=== PATIENT | female | born 1995 | race Caucasian/White ===

== ENCOUNTER 2016-04-28 06:53 | Emergency (ER) | payer BC, OTHER ==
[~2016-04-28] VITALS: Ht 162.6 cm; Wt 82.8 kg
[~2016-04-28 06:53] MED LIST: HYDR-5688 PO; METR-163 PO; OXYC-88 PO
[2016-04-28 06:57] VITALS: TEMP 36.9; Ht 162.6 cm; Wt 82.8 kg
[2016-04-28] MEDS ORDERED: ONDANSETRON INJ 2 MG/ML 2 ML VIAL IV STA (07:02)
[2016-04-28] MEDS ORDERED: SODIUM CHLORIDE 0.9% 1000ML 1,000 ML IV STA (07:02)
[2016-04-28] MEDS ORDERED: MELO7.5T5 PO (07:17)
[2016-04-28] MEDS ORDERED: ESCI10TA17 PO (07:17)
[2016-04-28 07:24] LABS: BASO % 0.1 %; BASO ABS # 0.01 K/uL (0-0.2); COMPLETE YES; EOS % 0.5 %; HEMATOCRIT 39.3 % (37-47); IG% 0.3 %; LYMPH % 3.8 %; LYMPH ABS # 0.53 K/uL (1.2-3.4); MEAN CELL VOLUME 86.9 fL (80-100); MEAN CORPUSCULAR HEMOGLOBIN 29.9 pg (25-34); MEAN CORPUSCULAR HGB CONC 34.4 g/dl (32-36); MEAN PLATELET VOLUME 9.1 fL (7.4-10.4); MONO % 2.8 %; NEUT % 92.5 %; PLATELET COUNT 279 K/uL (130-400); RED BLOOD COUNT 4.52 M/uL (4.2-5.4); WHITE BLOOD COUNT 14.07 K/uL (4.8-10.8)
[2016-04-28] MEDS ORDERED: KETOROLAC TROMETHAMINE 30 MG/ML VIAL IV STA (07:26)
[2016-04-28] MEDS ORDERED: HYDROmorphone INJ 0.5 MG/0.5 ML SYR IV STA (07:26)
[2016-04-28 07:29] LABS: URINE APPEARANCE CLOUDY (CLEAR); URINE BILIRUBIN NEG (NEG); URINE COLOR YELLOW; URINE EPITHELIAL CELL AUTO >30 /lpf (0-5); URINE NITRITE NEG (NEG); URINE SPECIFIC GRAVITY 1.022 (1.000-1.030); UROBILINOGEN NEG (NEG)
[2016-04-28 07:30] LABS: MANUAL MICROSCOPIC REQUIRED? NO; REVIEW REQ? NO
[2016-04-28 07:47] LABS: PREG INTERNAL NEGATIVE QC NEG CLEAR BACKGROUND; PREG INTERNAL POSITIVE QC POS CONTROL LINE
[2016-04-28] MEDS ORDERED: NITROFURANTOIN MONOHYDRATE 100 MG CAP PO STA (07:48)
[2016-04-28 07:49] LABS: ALT/SGPT 21 U/L (12-78); AST/SGOT 8 U/L (15-37); BLOOD UREA NITROGEN 17 mg/dl (7-18); BUN/CREATININE RATIO 20.3 (10-20); CARBON DIOXIDE 23 mmol/L (21-32); CHLORIDE 108 mmol/L (98-107); CREATININE 0.83 mg/dl (0.60-1.20); GLUCOSE 145 mg/dl (70-99); SODIUM 141 mmol/L (136-145)
[2016-04-28 07:52] LABS: ALKALINE PHOSPHATASE 53 U/L (45-117)
[2016-04-28] MEDS ORDERED: ONDA4TAB10 SL (08:16)
--- NOTE | 2016-04-28 08:35 | EMERGENCY ROOM VISIT NOTE ---
History Report prepared by Zac: Ayde Guerrero Under the Supervision of: Dr. Hardy Brown M.D. First contact with patient: 07:02 Chief Complaint: ABDOMINAL PAIN Stated Complaint: FOOD POISONING,PAIN,DEHYDRATION Nursing Triage Summary: Triage note: pt reports nausea, vomitting, diarrhea since midnight. "i think i ate bad sushi and i have food poisoning." pt also reports generalized abd pain. History of Present Illness The patient is a 21 year old female who presents to the Emergency Room with complaints of multiple episodes of vomiting over the past 7 hours. Currently, she is experiencing generalized abdominal pain, and she rates her discomfort as a 10/10. Prior to the time of onset, the patient had eaten sushi for dinner, which she thinks may have be spoiled. A few hours later, she then developed generalized abdominal pain and became nauseous, leading to several episodes of vomiting about every hour. She also notes passing multiple movements of watery diarrhea. She now believes that she is dehydrated as she has not been able to keep any food or fluids down without vomiting them back up. She denies noticing any blood or dark colors in her stools or emesis. The patient has a history of chronic back pain, which she states was exacerbated to her lower middle back last evening. She also notes pain and burning with urination. The patient denies having recent fevers, chills, chest pain, or shortness of breath and she has not been around any other ill contacts. She denies chance of and last normal menstrual period was last week Source of History: patient Onset: evening Position: abdomen Symptom Intensity: Quality: other (vomiting) Timing: other (multiple episodes) Modifying Factors (Worsening): eating, drinking Associated Symptoms: + abdominal pain, + diarrhea, + nausea, + urinary symptoms, + vomiting, No SOB, No chest pain, No chills, No fevers, No hematochezia, No melena Note: Denies hematemesis. Review of Systems See HPI for pertinent positives & negatives. A total of 10 systems reviewed and were otherwise negative. Past Medical & Surgical Medical Problems: (1) Active labor at term (2) Tubo-ovarian abscess Social History Smoking Status: Never Smoker Marital Status: single Occupation Status: employed Current/Historical Medications Scheduled Escitalopram (Lexapro), 10 MG PO DAILY Meloxicam (Mobic), 7.5 MG PO DAILY Nitrofurantoin Monohyd Macrocr (Macrobid), 100 MG PO BID Ondasetron Odt (Zofran Odt), 4 MG SL Q6H Allergies Coded Allergies: No Known Allergies (Unverified , 04/28/16) Physical Exam Vital Signs Date Time Temp Pulse Resp B/P Pulse Ox O2 Delivery O2 Flow Rate FiO2 04/28/16 08:46 90 16 118/69 96 04/28/16 07:46 95 04/28/16 06:57 36.9 127 18 97/63 95 Room Air Physical Exam GENERAL: Patient is a healthy-appearing well-nourished 21 year old female. HEAD: Normocephalic atraumatic EYES: Ocular movements intact pupils equal and react to light OROPHARYNX mucous membranes are moist no exudates present no erythema or edema present NECK: Supple no nuchal rigidity CHEST: Good equal expansion LUNGS: Clear and equal to auscultation CARDIAC: Normal S1 and S2 ABDOMEN: Soft nontender no guarding BACK: No CVA tenderness EXTREMITIES: No pain upon palpation normal muscle strength in all groups no clubbing cyanosis or edema NEURO: Patient is following commands is answering questions appropriately. Alert and oriented x3 Cranial Nerves 2-12 grossly intact Medical Decision & Procedures Laboratory Results 04/28/16 07:15 Red Blood Count 4.52, Mean Corpuscular Volume 86.9, Mean Corpuscular Hemoglobin 29.9, Mean Corpuscular Hemoglobin Concent 34.4, Mean Platelet Volume 9.1, Neutrophils (%) (Auto) 92.5, Lymphocytes (%) (Auto) 3.8, Monocytes (%) (Auto) 2.8, Eosinophils (%) (Auto) 0.5, Basophils (%) (Auto) 0.1, Neutrophils # (Auto) 13.02, Lymphocytes # (Auto) 0.53, Monocytes # (Auto) 0.40, Eosinophils # (Auto) 0.07, Basophils # (Auto) 0.01 04/28/16 07:15 Test 04/28/16 07:15 White Blood Count 14.07 K/uL (4.8-10.8) Red Blood Count 4.52 M/uL (4.2-5.4) Hemoglobin 13.5 g/dL (12.0-16.0) Hematocrit 39.3 % (37-47) Mean Corpuscular Volume 86.9 fL (80-100) Mean Corpuscular Hemoglobin 29.9 pg (25-34) Mean Corpuscular Hemoglobin Concent 34.4 g/dl (32-36) Platelet Count 279 K/uL (130-400) Mean Platelet Volume 9.1 fL (7.4-10.4) Neutrophils (%) (Auto) 92.5 % Lymphocytes (%) (Auto) 3.8 % Monocytes (%) (Auto) 2.8 % Eosinophils (%) (Auto) 0.5 % Basophils (%) (Auto) 0.1 % Neutrophils # (Auto) 13.02 K/uL (1.4-6.5) Lymphocytes # (Auto) 0.53 K/uL (1.2-3.4) Monocytes # (Auto) 0.40 K/uL (0.11-0.59) Eosinophils # (Auto) 0.07 K/uL (0-0.5) Basophils # (Auto) 0.01 K/uL (0-0.2) RDW Standard Deviation 50.0 fL (36.4-46.3) RDW Coefficient of Variation 15.7 % (11.5-14.5) Immature Granulocyte % (Auto) 0.3 % Immature Granulocyte # (Auto) 0.04 K/uL (0.00-0.02) Urine Color YELLOW Urine Appearance CLOUDY (CLEAR) Urine pH 5.0 (4.5-7.5) Urine Specific [place] 1.022 (1.000-1.030) Urine Protein NEG (NEG) Urine Glucose (UA) NEG (NEG) Urine Ketones NEG (NEG) Urine Occult Blood NEG (NEG) Urine Nitrite NEG (NEG) Urine Bilirubin NEG (NEG) Urine Urobilinogen NEG (NEG) Urine Leukocyte Esterase SMALL (NEG) Urine WBC (Auto) 10-30 /hpf (0-5) Urine RBC (Auto) 0-4 /hpf (0-4) Urine Hyaline Casts (Auto) 10-30 /lpf (0-5) Urine Epithelial Cells (Auto) >30 /lpf (0-5) Urine Bacteria (Auto) 1+ (NEG) Anion Gap 10.0 mmol/L (3-11) Est Creatinine Clear Calc Drug Dose 109.8 ml/min Estimated GFR () 115.2 Estimated GFR (Non- 99.4 BUN/Creatinine Ratio 20.3 (10-20) Calcium Level 9.0 mg/dl (8.5-10.1) Total Bilirubin 0.4 mg/dl (0.2-1) Direct Bilirubin < 0.1 mg/dl (0-0.2) Aspartate Amino Transf (AST/SGOT) 8 U/L (15-37) Alanine Aminotransferase (ALT/SGPT) 21 U/L (12-78) Alkaline Phosphatase 53 U/L (45-117) Total Protein 8.0 gm/dl (6.4-8.2) Albumin 4.2 gm/dl (3.4-5.0) Lipase 143 U/L (73-393) Human Chorionic Gonadotropin, Qual NEG (NEG) Labs reviewed by ED physician. Medications Administered Medications (Trade) Dose Ordered Sig/Nelson Route Start Time Stop Time Status Last Admin Dose Admin Sodium Chloride (Nss 1000ml) 1,000 ml @ 999 mls/hr Q1H1M STAT IV 04/28/16 07:02 04/28/16 08:02 DC 04/28/16 07:24 999 MLS/HR Ondansetron HCl (Zofran Inj) 4 mg NOW STAT IV 04/28/16 07:02 04/28/16 07:05 DC 04/28/16 07:24 4 MG Ketorolac Tromethamine (Toradol Inj) 30 mg NOW STAT IV 04/28/16 07:26 04/28/16 07:27 DC 04/28/16 07:40 30 MG Hydromorphone HCl (Dilaudid Inj) 0.5 mg NOW STAT IV 04/28/16 07:26 04/28/16 07:27 DC 04/28/16 07:37 0.5 MG Nitrofurantoin Macrocrystals (Macrobid Cap) 100 mg ONE STAT PO 04/28/16 07:48 04/28/16 07:50 DC 04/28/16 07:54 100 MG ED Course 0700: Past medical records reviewed. The patient was evaluated in room B3. A complete history and physical examination was performed. 0702: Zofran 4 mg IV and NSS bolus IV were ordered. 0726: Patient was reevaluated at this time and was still experiencing abdominal pain. Dilaudid 0.5 mg IV and Toradol 30 mg IV were ordered. 0748: Macrobid cap 100 mg PO was ordered. 0810: Upon reevaluation, the patient was doing well and was feeling improved after receiving the medications and fluids. I updated her on the results of her lab tests. Discharge instructions were also discussed at this time. She verbalized her understanding and agreement with the treatment plan, and she is now ready for disposition. Medical Decision Differential diagnosis: Etiologies such as appendicitis, diverticulitis, PUD, biliary pathology, UTI, pancreatitis, obstruction, mesenteric ischemia, aortic pathology, infections, inflammatory bowel disease, renal colic, as well as others were entertained. This is a 21-year-old female who presents emergency Department with multiple complaints. The patient is complaining of urinary frequency and burning. In addition she is also complaining of vomiting and diarrhea. Serial abdominal examinations were performed on the patient and no tended the patient exhibited a surgical abdomen. Using shared medical decision-making, the patient and I decided that we would not need a CAT scan as this appears to be gastroenteritis. An IV was established, the patient given normal saline bolus, Toradol, Dilaudid, Zofran. Repeat examination revealed improvement patient's symptoms. I do believe this patient as well as to be discharged home for follow -up with her primary care physician. Patient was started on Macrobid in the emergency department pending urine culture results. Impression Primary Impression: UTI (urinary tract infection) Additional Impression: Acute gastroenteritis Scribe Attestation The scribe's documentation has been prepared under my direction and personally reviewed by me in its entirety. I confirm that the note above accurately reflects all work, treatment, procedures, and medical decision making performed by me. Departure Information Dispostion Home / Self-Care Prescriptions Nitrofurantoin Monohyd Macrocr (Macrobid) 100 Mg Cap 100 MG PO BID for 7 Days, #14 CAP Prov: Hardy Brown MD 04/28/16 Ondasetron Odt (ZOFRAN ODT) 4 Mg Tab 4 MG SL Q6H for Nausea, #6 TAB Prov: Hardy Brown MD 04/28/16 Referrals No Doctor, Assigned (PCP) Forms HOME CARE DOCUMENTATION FORM, IMPORTANT VISIT INFORMATION Patient Instructions ED Diet Vomiting Diarrhea, ED Gastroenteritis Vs Food Poison, My [facility] Additional Instructions You received narcotic or benzodiazepene medication while in the emergency room today. Do not drive, operate heavy machinery, or drink alcohol under the influence of this medication. Take 600 mg Ibuprofen every 6 hours Take 1000 mg Tylenol every 6 hours You have been examined and treated today on an emergency basis only. This is not a substitute for, or an effort to provide, complete comprehensive medical care. It is impossible to recognize and treat all injuries or illnesses in a single emergency department visit. It is therefore important that you follow up closely with your PCP. Call as soon as possible for an appointment. Thank you for your time and consideration. I look forward to speaking with you again soon. Please don't hesitate to call us if you have any questions. Problem Qualifiers Primary Impression: UTI (urinary tract infection) Urinary tract infection type: acute cystitis Hematuria presence: without hematuria Qualified Codes: N30.00 - Acute cystitis without hematuria
[2016-04-28] MEDS ORDERED: NITR-5 PO (08:41)
[2016-04-28 08:46] VITALS: BP 118/69; PULSE 90; O2SAT 96
[2016-12-17] MEDS ORDERED: ESCI1TAB10 PO (06:08)
[2016-12-17] MEDS ORDERED: AMPH20TA2 PO (06:09)
[2016-12-17] MEDS ORDERED: DXY100 PO (17:57)
== END 2016-04-28 08:40 | disposition home or self-care (01) ==
LOC: C.EDB 06:54
DX: N39.0 Urinary tract infection, site not specified (principal); K52.9 Noninfective gastroenteritis and colitis, unspecified

== ENCOUNTER 2016-12-17 05:16 | Observation (INO) | payer BC, OTHER ==
[~2016-12-17] VITALS: Ht 162.6 cm; Wt 78.9 kg
[~2016-12-17 05:16] MED LIST changes: +ESCI10TA17 PO; -HYDR-5688 PO; +MELO7.5T5 PO; -METR-163 PO; -OXYC-88 PO
[2016-12-17] MEDS ORDERED: METOCLOPRAMIDE HCL INJ 5 MG/ML 2 ML VIAL IV STA (05:28)
[2016-12-17] MEDS ORDERED: DiphenhydrAMINE HCL 50 MG/ML VIAL IV STA (05:28)
[2016-12-17] MEDS ORDERED: ALUMINUM/MAGNESIUM SUSP 30 ML UDC PO STA (05:28)
[2016-12-17] MEDS ORDERED: SODIUM CHLORIDE 0.9% 1000ML 1,000 ML IV STA (05:28)
[2016-12-17] MEDS ORDERED: LIDOCAINE HCL 2% VISC SOLN 20 ML UDC PO STA (05:28)
[2016-12-17 05:55] LABS: BASO % 0.2 %; BASO ABS # 0.02 K/uL (0-0.2); COMPLETE YES; EOS % 2.4 %; IG% 0.2 %; LYMPH % 20.2 %; LYMPH ABS # 2.26 K/uL (1.2-3.4); MEAN CELL VOLUME 90.1 fL (80-100); MEAN CORPUSCULAR HEMOGLOBIN 28.4 pg (25-34); MEAN CORPUSCULAR HGB CONC 31.5 g/dl (32-36); MEAN PLATELET VOLUME 9.1 fL (7.4-10.4); MONO % 4.8 %; NEUT % 72.2 %; PLATELET COUNT 300 K/uL (130-400); RED BLOOD COUNT 4.44 M/uL (4.2-5.4); WHITE BLOOD COUNT 11.17 K/uL (4.8-10.8)
[2016-12-17 06:11] LABS: ALT/SGPT 17 U/L (12-78); AST/SGOT 7 U/L (15-37); BLOOD UREA NITROGEN 6 mg/dl (7-18); BUN/CREATININE RATIO 8.9 (10-20); CALCIUM 8.7 mg/dl (8.5-10.1); CARBON DIOXIDE 26 mmol/L (21-32); CHLORIDE 107 mmol/L (98-107); CREATININE 0.71 mg/dl (0.60-1.20); GLUCOSE 123 mg/dl (70-99); POTASSIUM 3.8 mmol/L (3.5-5.1); SODIUM 139 mmol/L (136-145)
[2016-12-17 06:14] LABS: ALKALINE PHOSPHATASE 59 U/L (45-117)
[2016-12-17] MEDS ORDERED: OPTIRAY 320 IV PRN (06:15)
[2016-12-17] MEDS ORDERED: ONDANSETRON HOME PACK 4MG OD TAB PO ONE (06:15)
[2016-12-17] MEDS ORDERED: BENTYL HOME PACK 10 MG VIAL PO ONE (06:15)
[2016-12-17] MEDS ORDERED: DICYCLOMINE HCL 10 MG/ML 2 ML AMP IM ONE (06:15)
[2016-12-17 06:25] LABS: PREG INTERNAL NEGATIVE QC NEG CLEAR BACKGROUND; PREG INTERNAL POSITIVE QC POS CONTROL LINE
--- NOTE | 2016-12-17 06:41 | EMERGENCY ROOM VISIT NOTE ---
History First contact with patient: 05:24 Chief Complaint: ABDOMINAL PAIN Stated Complaint: STOMACH PAIN,NAUSEA,CAN'T EAT OR DRINK Nursing Triage Summary: c/o diffuse abd pain, vomiting for 3-4 days. History of Present Illness The patient is a 21 year old female who presents to the Emergency Room with complaints of nausea, vomiting, diarrhea and abdominal cramping for the past few days. No blood or black in the emesis or diarrhea. No recent antibiotics. No well water. Patient denies chest pain, dyspnea, fever, chills, cough, ejection, back pain, urinary symptoms. Review of Systems See HPI for pertinent positives & negatives. A total of 10 systems reviewed and were otherwise negative. Past Medical/Surgical History Medical Problems: (1) Active labor at term (2) Tubo-ovarian abscess Social History Smoking Status: Never Smoker Drug Use: none Marital Status: in relationship Housing Status: lives with family Occupation Status: employed Current/Historical Medications Scheduled Amphetamine-Dextroamphetamine 20MG (Adderall 20MG), 20 MG PO DAILY Escitalopram Oxalate (Lexapro), 20 MG PO DAILY Physical Exam Vital Signs Date Time Temp Pulse Resp B/P (MAP) Pulse Ox O2 Delivery O2 Flow Rate FiO2 12/17/16 06:37 67 18 110/68 98 Room Air 12/17/16 06:05 76 12/17/16 05:40 96 Room Air 12/17/16 05:19 36.4 81 18 120/81 94 Room Air Physical Exam VITALS: Vitals are noted on the nurse's note and reviewed by myself. Vital signs stable. GENERAL: White female, in no acute distress, nondiaphoretic, well-developed well -nourished. SKIN: The skin was without rashes, erythema, edema, or bruising. There is no tenting of the skin. Capillary reflex less than 2 seconds. HEAD: Normocephalic atraumatic. EARS: External auditory canals clear, tympanic membranes pearly key without erythema or effusion bilaterally. EYES: Pupils equal round and reactive to light and accommodation. Conjunctivae without injection, sclerae without icterus. Extraocular movements intact. NOSE: Patent, turbinates without inflammation or discharge. MOUTH: Mucous membranes mildly dry. Pharynx without erythema or exudate. Uvula midline. Airway patent. Tongue does not deviate. NECK: Supple without nuchal rigidity. No lymphadenopathy. No thyromegaly. Cervical spine is nontender. No JVD. HEART: Regular rate and rhythm without murmurs gallops or rubs. LUNGS: Clear to auscultation bilaterally without wheezes, rales or rhonchi. No dullness to percussion. No retractions or accessory muscle use. ABDOMEN: Positive bowel sounds x 4. Normal tympanic percussion. Soft, nontender, without masses or organomegaly. Solorzano sign negative. No guarding or rebound tenderness. No CVA tenderness MUSCULOSKELETAL: No muscle atrophy, erythema, or edema noted. NEURO: Patient was alert and oriented to person place and time. Normal sensation to light and sharp touch. No focal neurological deficits. Medical Decision & Procedures Laboratory Results 12/17/16 05:40 Red Blood Count 4.44, Mean Corpuscular Volume 90.1, Mean Corpuscular Hemoglobin 28.4, Mean Corpuscular Hemoglobin Concent 31.5, Mean Platelet Volume 9.1, Neutrophils (%) (Auto) 72.2, Lymphocytes (%) (Auto) 20.2, Monocytes (%) (Auto) 4.8, Eosinophils (%) (Auto) 2.4, Basophils (%) (Auto) 0.2, Neutrophils # (Auto) 8.06, Lymphocytes # (Auto) 2.26, Monocytes # (Auto) 0.54, Eosinophils # (Auto) 0.27, Basophils # (Auto) 0.02 12/17/16 05:40 Test 12/17/16 05:40 White Blood Count 11.17 K/uL (4.8-10.8) Red Blood Count 4.44 M/uL (4.2-5.4) Hemoglobin 12.6 g/dL (12.0-16.0) Hematocrit 40.0 % (37-47) Mean Corpuscular Volume 90.1 fL (80-100) Mean Corpuscular Hemoglobin 28.4 pg (25-34) Mean Corpuscular Hemoglobin Concent 31.5 g/dl (32-36) Platelet Count 300 K/uL (130-400) Mean Platelet Volume 9.1 fL (7.4-10.4) Neutrophils (%) (Auto) 72.2 % Lymphocytes (%) (Auto) 20.2 % Monocytes (%) (Auto) 4.8 % Eosinophils (%) (Auto) 2.4 % Basophils (%) (Auto) 0.2 % Neutrophils # (Auto) 8.06 K/uL (1.4-6.5) Lymphocytes # (Auto) 2.26 K/uL (1.2-3.4) Monocytes # (Auto) 0.54 K/uL (0.11-0.59) Eosinophils # (Auto) 0.27 K/uL (0-0.5) Basophils # (Auto) 0.02 K/uL (0-0.2) RDW Standard Deviation 46.8 fL (36.4-46.3) RDW Coefficient of Variation 14.3 % (11.5-14.5) Immature Granulocyte % (Auto) 0.2 % Immature Granulocyte # (Auto) 0.02 K/uL (0.00-0.02) Anion Gap 6.0 mmol/L (3-11) Est Creatinine Clear Calc Drug Dose 125.3 ml/min Estimated GFR () 139.1 Estimated GFR (Non- 120.1 BUN/Creatinine Ratio 8.9 (10-20) Calcium Level 8.7 mg/dl (8.5-10.1) Total Bilirubin 0.2 mg/dl (0.2-1) Direct Bilirubin < 0.1 mg/dl (0-0.2) Aspartate Amino Transf (AST/SGOT) 7 U/L (15-37) Alanine Aminotransferase (ALT/SGPT) 17 U/L (12-78) Alkaline Phosphatase 59 U/L (45-117) Total Protein 6.9 gm/dl (6.4-8.2) Albumin 3.4 gm/dl (3.4-5.0) Lipase 1018 U/L (73-393) Human Chorionic Gonadotropin, Qual NEG (NEG) Medications Administered Medications (Trade) Dose Ordered Sig/Nelson Route Start Time Stop Time Status Last Admin Dose Admin Lidocaine HCl (Viscous Lidocaine 2% Soln) 10 ml NOW STAT PO 12/17/16 05:28 12/17/16 05:29 DC 12/17/16 05:46 10 ML Al Hydroxide/Mg Hydroxide (Maalox Susp) 30 ml NOW STAT PO 12/17/16 05:28 12/17/16 05:29 DC 12/17/16 05:46 30 ML Metoclopramide HCl (Reglan Inj) 10 mg NOW STAT IV 12/17/16 05:28 12/17/16 05:29 DC 12/17/16 05:48 10 MG Diphenhydramine HCl (Benadryl Inj) 12.5 mg NOW STAT IV 12/17/16 05:28 12/17/16 05:29 DC 12/17/16 05:48 12.5 MG Sodium Chloride 1,000 ml @ 999 mls/hr Q1H1M STAT IV 12/17/16 05:28 12/17/16 06:28 DC 12/17/16 05:48 999 MLS/HR Dicyclomine HCl (Bentyl Inj) 20 mg NOW ONCE IM 12/17/16 06:15 12/17/16 06:16 DC 12/17/16 06:33 20 MG ED Course Prior records/ancillary studies reviewed. Triage Nursing notes reviewed. The patient's history was concerning for nausea, vomiting, diarrhea, and abdominal pain. Differential diagnosis: Etiologies such as gastroenteritis, food borne illness, infections, appendicitis , diverticulitis, inflammatory bowel disease, obstruction, GI bleed, biliary pathology, as well as others were entertained. Physical examination findings: As above. Abdominal examination revealed no tenderness. Vital signs reviewed and revealed stable. ER treatment provided: IV hydration 1 L NSS. GI cocktail, Reglan, Benadryl On reassessment the patient felt better. Patient was tolerating p.o. intake. Diagnostics interpretation by me: The labs revealed elevated lipase and mild leukocytosis CT ABDOMEN & PELVIS: Unremarkable CT appearance of the pancreas. Liver, gallbladder, pancreas, adrenal glands, and kidneys are unremarkable. No bowel obstruction, appendicitis, or diverticulitis. Uterus and urinary bladder are unremarkable. Trace free pelvic fluid, likely physiologic. No acute osseous findings. Radiologist: Abhilash Sawyer M.D. This appears to be consistent with vomiting and diarrhea with elevated lipase concerning for pancreatitis. Patient has a mildly elevated white count and elevated lipase. She will be evaluated by medicine for possible admission. Patient states she does not really drink alcohol. No fever. Normal LFTs. By the evaluation outlined above emergent etiologies such as appendicitis, diverticulitis, obstruction, cardiac sources, mesenteric ischemia, aortic pathology, inflammatory bowel disease, renal colic, PUD, biliary pathology, UTI , as well as others were deemed relatively unlikely. The pt informed about the findings as listed above. All questions were answered and pleased with the treatment. Case reviewed with my attending Medical Decision As above Medication Reconcilliation Current Medication List: was personally reviewed by me Blood Pressure Screening Patient's blood pressure: Normal blood pressure Impression Primary Impression: Nausea vomiting and diarrhea Additional Impression: Pancreatitis Departure Information Dispostion Being Evaluated By Hospitalist Condition GOOD Referrals No Doctor, Assigned (PCP) Patient Instructions My [facility] Additional Instructions Problem Qualifiers Additional Impression: Pancreatitis Chronicity: acute Pancreatitis type: unspecified pancreatitis type Acute pancreatitis complication: unspecified Qualified Codes: K85.90 - Acute pancreatitis without necrosis or infection, unspecified
[2016-12-17] MEDS ORDERED: PROMETHAZINE HCL INJ 12.5 MG in SODIUM CHLORIDE 0.9% 50ML 50 ML IV PRN (07:00)
[2016-12-17] MEDS ORDERED: ACETAMINOPHEN IV 650 MG in EMPTY BAG 0 ML IV PRN (07:00)
[2016-12-17] MEDS ORDERED: MoRPHine SULFATE 2 MG/ML CARP IV PRN (07:00)
[2016-12-17] MEDS ORDERED: ONDANSETRON INJ 2 MG/ML 2 ML VIAL IV PRN (07:00)
[2016-12-17] MEDS ORDERED: MoRPHine SULFATE 4 MG/ML 1 ML CARP\\VIAL IV PRN (07:00)
[2016-12-17] MEDS ORDERED: IV FLUIDS COMPLETED PRN (07:30)
[2016-12-17 07:45] VITALS: O2SAT 98; Ht 162.6 cm; Wt 78.9 kg
--- NOTE | 2016-12-17 07:47 | DIAGNOSTIC IMAGING REPORT ---
CT OF THE ABDOMEN AND PELVIS WITH CONTRAST CLINICAL HISTORY: Epigastric pain. Elevated lipase. COMPARISON STUDY: Right upper quadrant ultrasound February 14, 2016 and pelvic ultrasound March 31, 2016. TECHNIQUE: Following IV administration of 92 mL of Optiray-320, axial images of the abdomen and pelvis were obtained from the lung bases to the proximal femurs. Images were reviewed in the axial, sagittal, and coronal planes. IV contrast was administered without complication. A dose lowering technique was utilized adhering to the principles of ALARA. CT DOSE: 362.83 mGy.cm FINDINGS: The liver, spleen, adrenal glands and kidneys are normal. The pancreas is also within normal limits. There is no peripancreatic infiltration. No biliary or pancreatic ductal dilatation is present. There is no hydronephrosis. The caliber and wall thickness of small and large bowel are normal. The appendix is normal. The ovaries are not enlarged. A small amount of low-attenuation free fluid is noted within the pelvis. There are no suspicious osseous lesions. No pneumatosis, free air or portal venous gas is present. There is no lymphadenopathy. IMPRESSION: 1. No acute process within the abdomen or pelvis. Normal CT appearance of the pancreas. However, this does not exclude the possibility of acute pancreatitis. 2. Trace free fluid within the pelvis which is likely physiologic. 3. Normal appendix. No bowel obstruction. Electronically signed by: Miguel Jacinto M.D. 12/17/2016 7:46 AM Dictated Date/Time: 12/17/2016 7:42 AM
[2016-12-17] MEDS ORDERED: CEFOXITIN 2000MG/60 ML D5W IV SCH (08:00)
[2016-12-17 08:30] VITALS: BP 122/76; PULSE 74; TEMP 36.8; O2SAT 98
[2016-12-17] MEDS: LACTATED RINGER'S 1000ML 1,000 ML IV SCH ×2 (08:48→16:45)
[2016-12-17 08:52] LABS: URINE APPEARANCE CLEAR (CLEAR); URINE BILIRUBIN NEG (NEG); URINE COLOR YELLOW; URINE EPITHELIAL CELL AUTO >30 /lpf (0-5); URINE NITRITE NEG (NEG); URINE SPECIFIC GRAVITY > 1.045 (1.000-1.030); UROBILINOGEN NEG (NEG); ZZUR CULT IF INDIC CLEAN CATCH NO
[2016-12-17 08:53] LABS: MANUAL MICROSCOPIC REQUIRED? NO; REVIEW REQ? NO
--- NOTE | 2016-12-17 08:54 | History and Physical ---
History & Physical Date & Time of Service: Dec 17, 2016 at 08:49 Chief Complaint: Pancreatitis possible PID Primary Care Physician: No Doctor, Assigned History of Present Illness 21-year-old female presents to the ER with a few days' worth of abdominal pain. When asked she describes her pain mostly in her pelvis to be significant at 7/ 10 to be a dull ache exacerbated by moving coughing taking a deep breath radiating to her epigastrium and rib cage. She did have a GI cocktail by her account in the ER without any improvement of her pain her pain in her abdomen is mostly towards the left side. In the ER she is found to have elevated lipase around 1000. Of note she had an admission in March 2016 for tubo- ovarian abscess. Patient is mildly uncomfortable she says nothing has relieved her pain she sees Maria R DELIVERY MAN Family History She has no family history of gallstones or kidney stones, she states her family generally healthy Social History Smoking Status: Former Smoker Drug Use: none Marital Status: in relationship Occupational Status: employed Allergies Coded Allergies: No Known Allergies (Unverified , 12/17/16) Home Medications Scheduled Amphetamine-Dextroamphetamine 20MG (Adderall 20MG), 20 MG PO DAILY Escitalopram Oxalate (Lexapro), 20 MG PO DAILY Review of Systems ROS: well nourished well developed No double vision blurry vision No problems with speech or swallowing No palpitations, chest pain or pressure No Wheezing or breathing issues Left-sided lower abdominal pain plus nausea without vomiting, no diarrhea changes in appetite or weight No burning urine urine frequency or changes in color The patient denies vaginal discharge more than usual in her own words she's had no painful intercourse No focal joint pain or muscle pain No skin rashes or oral lesions No unusual bruising or bleeding Patient has a left CVA angle tenderness No changes in memory or confusion Physical Exam Vital Signs Date Time Temp Pulse Resp B/P (MAP) Pulse Ox O2 Delivery O2 Flow Rate FiO2 12/17/16 08:25 79 16 114/77 97 12/17/16 07:45 98 Room Air 12/17/16 06:37 67 18 110/68 98 Room Air 12/17/16 06:05 76 12/17/16 05:40 96 Room Air 12/17/16 05:19 36.4 81 18 120/81 94 Room Air General Appearance: WD/WN, + moderate distress Eyes: PERRL, EOMI ENT: hearing grossly normal, pharynx normal Respiratory/Chest: chest non-tender, lungs clear, normal breath sounds, + pertinent finding (has decreased breath sounds due to pain limiting deep breath) Cardiovascular: regular rate, rhythm, no murmur Abdomen/GI: normal bowel sounds, soft, + tenderness, + guarding, + pertinent finding (does not have significant pain in the left upper quadrant) Back: no muscle spasm, + left CVA tenderness Extremities/Musculoskelatal: no calf tenderness, no pedal edema Neurologic/Psych: alert, oriented x 3 Skin: normal color, warm/dry, no rash Diagnostics Laboratory Results Results Past 24 Hours Test 12/17/16 05:40 12/17/16 08:00 Range/Units White Blood Count 11.17 4.8-10.8 K/uL Red Blood Count 4.44 4.2-5.4 M/uL Hemoglobin 12.6 12.0-16.0 g/dL Hematocrit 40.0 37-47 % Mean Corpuscular Volume 90.1 80-100 fL Mean Corpuscular Hemoglobin 28.4 25-34 pg Mean Corpuscular Hemoglobin Concent 31.5 32-36 g/dl Platelet Count 300 130-400 K/uL Mean Platelet Volume 9.1 7.4-10.4 fL Neutrophils (%) (Auto) 72.2 % Lymphocytes (%) (Auto) 20.2 % Monocytes (%) (Auto) 4.8 % Eosinophils (%) (Auto) 2.4 % Basophils (%) (Auto) 0.2 % Neutrophils # (Auto) 8.06 1.4-6.5 K/uL Lymphocytes # (Auto) 2.26 1.2-3.4 K/uL Monocytes # (Auto) 0.54 0.11-0.59 K/uL Eosinophils # (Auto) 0.27 0-0.5 K/uL Basophils # (Auto) 0.02 0-0.2 K/uL RDW Standard Deviation 46.8 36.4-46.3 fL RDW Coefficient of Variation 14.3 11.5-14.5 % Immature Granulocyte % (Auto) 0.2 % Immature Granulocyte # (Auto) 0.02 0.00-0.02 K/uL Sodium Level 139 136-145 mmol/L Potassium Level 3.8 3.5-5.1 mmol/L Chloride Level 107 98-107 mmol/L Carbon Dioxide Level 26 21-32 mmol/L Anion Gap 6.0 3-11 mmol/L Blood Urea Nitrogen 6 7-18 mg/dl Creatinine 0.71 0.60-1.20 mg/dl Est Creatinine Clear Calc Drug Dose 125.3 ml/min Estimated GFR () 139.1 Estimated GFR (Non- 120.1 BUN/Creatinine Ratio 8.9 10-20 Random Glucose 123 70-99 mg/dl Calcium Level 8.7 8.5-10.1 mg/dl Total Bilirubin 0.2 0.2-1 mg/dl Direct Bilirubin < 0.1 0-0.2 mg/dl Aspartate Amino Transf (AST/SGOT) 7 15-37 U/L Alanine Aminotransferase (ALT/SGPT) 17 12-78 U/L Alkaline Phosphatase 59 45-117 U/L Total Protein 6.9 6.4-8.2 gm/dl Albumin 3.4 3.4-5.0 gm/dl Lipase 1018 73-393 U/L Human Chorionic Gonadotropin, Qual NEG NEG Diagnostic Radiology CT scan does not show any peripancreatic inflammation there is some free fluid in the pelvis next Pending transvaginal ultrasound Item Value Date Time White Blood Count 11.17 K/uL H 12/17/16 0540 Lipase 1018 U/L H 12/17/16 0540 Human Chorionic Gonadotropin, Qual NEG 12/17/16 0540 Total Bilirubin 0.2 mg/dl 12/17/16 0540 Aspartate Amino Transf (AST/SGOT) 7 U/L L 12/17/16 0540 Alanine Aminotransferase (ALT/SGPT) 17 U/L 12/17/16 0540 Impression Assessment and Plan 20-year-old female here with abdominal pain and incidentally noted elevated lipase is For the outside possibility of pancreatitis she'll be on lactated Ringer's pain control and nothing by mouth except ice chips and sips next For the recent history of PID and symptoms similar clinically of the same a transvaginal ultrasound will be undertaken for evaluation of recurrent, she'll be placed on cefoxitin IV 2 g every 6 and doxycycline 100 twice a day Her typical or medications or viral Lexapro will be held DVT prevention at this time is held in lieu of possible procedure if no procedure is warranted given her inflammatory state chemical prophylaxis would be indicated Advanced Directives Existing Living Will: No Existing Power of Filler Room Attendant: No VTE Prophylaxis VTE Risk Assessment Done? Y/N: Yes Risk Level: Moderate
[2016-12-17] MEDS ORDERED: DOXYCYCLINE HYCLATE 100 MG CAP PO SCH (09:00)
[2016-12-17] MEDS: CEFOXITIN IV 2,000 MG in DEXTROSE 5% 50ML 50 ML IV SCH ×2 (09:32→16:44)
--- NOTE | 2016-12-17 13:04 | HISTORY & PHYSICAL EXAMINATION ---
DATE OF ADMISSION: 12/17/2016 CONSULT REQUESTED BY: Dr. Hassan. REASON FOR CONSULTATION: Prior history of a tubo-ovarian abscess and rule out PID. HISTORY OF PRESENT ILLNESS: The patient is a 21-year-old female para 1-0-0-1, last menstrual period 2 weeks ago regular cycles without any evidence of contraception. At the present time, her test was negative. She presents with several days history of low abdominal pain mostly on the left side associated with some nausea. The patient has not had any significant vomiting, although last night she did note that she had one episode of vomiting. The patient is in no acute distress on presentation when I saw her she is in bed, comfortable. The patient states that since she has been on antibiotics the pain has been mildly improved. SOCIAL HISTORY: The patient denies any smoking, alcohol or drug use currently. ALLERGIES: No known allergies. MEDICATIONS: Include Adderall 20 mg p.o. daily and Lexapro 20 mg p.o. daily. PAST OBSTETRICAL HISTORY: x1. PAST SURGICAL HISTORY: None. REVIEW OF SYSTEMS: Negative except for some mild abdominal pain and some mild nausea. The patient did have some dizziness earlier this morning. PHYSICAL EXAMINATION: VITAL SIGNS: Normal. Temperature is 36.4. Her blood pressure is 120/81 with pulse ox of 94 on room air. APPEARANCE: Well developed, well nourished, in no acute distress. LUNGS: Clear to auscultation. HEART: Regular rate and rhythm. ABDOMEN: Soft. Bowel sounds present in all 4 quadrants. There is no tenderness or guarding on my exam with no rebound. EXTREMITIES: No edema. No calf tenderness. NEUROLOGIC: Intact. SKIN: Negative. LABORATORY DATA: test was negative. White blood cell count 11.17, hemoglobin 12.6, and hematocrit 40. Her liver functions are normal. Her lipase was 1018. Also on pelvic exam the vulva and vagina were negative. There was no discharge. On speculum exam, there was no cervical motion tenderness and no bilateral adnexal mass or pain that was noted. The cultures for GC and chlamydia were also obtained and there was no bleeding from the cervix. IMAGING DATA: A CAT scan that was done today revealed no acute process within the abdomen, normal CT appearance of the appendix, trace fluid within the pelvis, likely physiologically normal appendix with no evidence of bowel obstruction. ASSESSMENT AND PLAN: I doubt that this patient has an acute exacerbation of pelvic inflammatory disease or any evidence of tubo-ovarian abscess and she currently is on antibiotics which can be continued and keep her n.p.o. until no evidence of acute pancreatitis. We will also possible look at gallbladder for possible gallstones. Otherwise, we will follow as needed.
--- NOTE | 2016-12-17 15:23 | DIAGNOSTIC IMAGING REPORT ---
TRANSVAG-FEMALE PELVIS HISTORY: 21 years-old Female eval for tubo ovarian abscess, L>R history of same 03/26 acute left greater than right pelvic pain. COMPARISON: Pelvic ultrasound 03/31/2016, CTA abdomen and pelvis 12/17/2016 TECHNIQUE: Multiple real-time sonographic images of the deep pelvic structures were obtained transabdominally and transvaginally assessing grayscale appearance and color flow. FINDINGS: TRANSABDOMINAL: Retroflexed uterus is seen, 8.6 x 4.4 x 4.2 cm. Right ovary measures 2.4 x 3.5 x 1.5 cm. Left ovary not visualized. TRANSVAGINAL: Arterial inflow within the right ovary is documented which measures 2.1 x 4.0 x 2.1 cm and is unremarkable. Left ovary measures 3.6 x 2.6 x 2.5 cm. Cystic lesion within the left ovary is seen, 2.0 x 1.8 x 1.7 cm suggesting dominant follicle. Arterial inflow is documented within the left ovary. There is a mild amount of free pelvic fluid. Nabothian cyst noted. Uterus is homogeneous without focal mass. Endometrium measures 0.9 cm. IMPRESSION: 1. Dominant left ovarian follicle, 2.0 cm. No evidence of torsion within either ovary. 2. Trace free pelvic fluid, likely physiologic. 3. Unremarkable sonographic appearance of the uterus and endometrium. The above report was generated using voice recognition software. It may contain grammatical, syntax or spelling errors. Electronically signed by: Markos Barcenas M.D. 12/17/2016 3:22 PM Dictated Date/Time: 12/17/2016 3:18 PM
[2016-12-17 15:40] VITALS: BP 102/66; PULSE 72; TEMP 36.6; O2SAT 96
[2016-12-17 17:43] LABS: ALKALINE PHOSPHATASE 57 U/L (45-117); ALT/SGPT 17 U/L (12-78); AST/SGOT 11 U/L (15-37)
[2016-12-17] MEDS ORDERED: DXY100 PO (17:57)
--- NOTE | 2016-12-17 17:58 | Discharge Instructions ---
Discharge Instructions Date of Service Dec 17, 2016. Admission Reason for Admission: Pancreatitis Discharge Discharge Diagnosis / Problem: abdominal pain Discharge Goals Goal(s): Diagnostic testing, Therapeutic intervention Activity Recommendations Activity Limitations: resume your previous activity . Current Hospital Diet Patient's current hospital diet: Full Liquid Diet Discharge Diet Recommended Diet: Regular Diet Pending Studies Studies pending at discharge: yes List of pending studies: cultures Medical Emergencies . Who to Call and When: Medical Emergencies: If at any time you feel your situation is an emergency, please call 911 immediately. . Non-Emergent Contact Non-Emergency issues call your: Facilities Operations Technician Call Non-Emergent contact if: temperature is above 101, your pain is unusual for you . . "Provider Documentation" section prepared by Teo Hassan. . VTE Core Measure Inpt VTE Proph given/why not?: Enoxaparin (Lovenox)SQ
--- NOTE | 2016-12-17 18:02 | Discharge Summary ---
Discharge Summary Date of Service Dec 17, 2016. Discharge Summary Admission Date: Dec 17, 2016 at 07:04 Discharge Date: Dec 17, 2016 Discharge Disposition: Home Principal Diagnosis: abdominal pain Procedures: CT abdomen and pelvis trace fluid in the cul-de-sac no biliary or hepatic or pancreatic irritation seen Transvaginal ultrasound 2 centimeter ovarian cyst seen Vaginal cultures pending Consultations: Dr. Minor gynecology Discharge Exam Review of Systems: Constitutional: No fever, No chills, No sweats Physical Exam: General Appearance: WD/WN, no apparent distress Respiratory/Chest: chest non-tender, lungs clear Abdomen / GI: normal bowel sounds, non tender, soft Hospital Course 20-year-old female here with abdominal pain and incidentally noted elevated lipase is Pancreatitis has been ruled out by serial lipase being normal, no imaging studies to suggest pancreatitis, and patient tolerating diet For the recent history of PID and symptoms similar clinically after receiving cefoxitin IV 2 g she'll be sent home on doxycycline 100 twice a day with recommendation to follow-up the primary care doctor resuming her Lexapro D Total Time Spent: Less than 30 minutes This includes examination of the patient, discharge planning, medication reconciliation, and communication with other providers. Discharge Instructions Please refer to the electronic Patient Visit Report (Discharge Instructions) for additional information.
[2016-12-17 18:30] VITALS: BP 102/66; PULSE 72; TEMP 36.6; O2SAT 96
[2017-01-21] MEDS ORDERED: ESCI1TAB10 PO (06:08)
[2017-01-21] MEDS ORDERED: AMPH20TA2 PO (06:09)
== END 2016-12-17 19:00 | disposition home or self-care (01) ==
LOC: C.EDB 05:17 → C.4E 07:04 → ENRESERV 08:02
PROVIDERS: ADMIT Internal Medicine; ATTEND Internal Medicine
DX: K85.90 Acute pancreatitis without necrosis or infection, unspecified (principal); Z87.891 Personal history of nicotine dependence

== ENCOUNTER 2017-01-20 09:53 | Emergency (ER) | payer OTHER ==
[~2017-01-20] VITALS: Ht 162.6 cm; Wt 76.0 kg
[~2017-01-20 09:53] MED LIST changes: +DXY100 PO; -ESCI10TA17 PO; -MELO7.5T5 PO
[2017-01-20 10:00] VITALS: TEMP 36.9; Ht 162.6 cm; Wt 76.0 kg
[2017-01-20] MEDS ORDERED: ONDANSETRON INJ 2 MG/ML 2 ML VIAL IV STA (10:21)
[2017-01-20] MEDS ORDERED: MoRPHine SULFATE 10 MG/ML CARP/VIAL IV STA (10:21)
[2017-01-20] MEDS ORDERED: SODIUM CHLORIDE 0.9% 1000ML 1,000 ML IV STA (10:21)
[2017-01-20] MEDS ORDERED: MoRPHine SULFATE 2 MG/ML CARP ONE (10:27)
[2017-01-20] MEDS ORDERED: MoRPHine SULFATE 4 MG/ML 1 ML CARP\\VIAL ONE (10:27)
--- NOTE | 2017-01-20 10:27 | EMERGENCY ROOM VISIT NOTE ---
History First contact with patient: 10:04 Chief Complaint: ABDOMINAL PAIN Stated Complaint: PANCREAS-EXTREME PAIN Nursing Triage Summary: see triage note History of Present Illness The patient is a 21 year old female who presents to the Emergency Room with complaints of epigastric abdominal pain for the past 2 days. The patient states that she has had pain in her upper abdomen as well as nausea, vomiting and diarrhea for the past 2 days. She reports that she has been seen here previously for this and has been told that she has pancreatitis. She states she still has her gallbladder. She denies any significant alcohol ingestion. She does state she had one light been with dinner 2 days ago. She states that she woke up with severe pain 2 days ago. She had a syncopal episode secondary to the pain. She rates her overall discomfort a 10/10. She has not taken any medication at home for the pain. She denies any fevers/chills, urinary symptoms , vaginal discharge. Review of Systems A complete 10 point review of systems was reviewed with the patient with pertinent positives and negatives as per history of present illness. All else were negative. Past Medical/Surgical History Medical Problems: (1) Active labor at term (2) Tubo-ovarian abscess Social History Smoking Status: Never Smoker Drug Use: none Marital Status: in relationship Housing Status: lives with family Occupation Status: employed Current/Historical Medications Scheduled Amphetamine-Dextroamphetamine 20MG (Adderall 20MG), 20 MG PO DAILY Escitalopram Oxalate (Lexapro), 20 MG PO DAILY Omeprazole (Prilosec), 40 MG PO DAILY Ondasetron Odt (Zofran Odt), 4 MG SL Q6H Scheduled PRN Hydrocodone/Acetaminophen 5MG/325MG ([place] 5MG/325MG), 1-2 TABLET PO Q4H PRN for Pain Physical Exam Vital Signs Date Time Temp Pulse Resp B/P (MAP) Pulse Ox O2 Delivery O2 Flow Rate FiO2 01/20/17 15:22 68 16 107/58 98 01/20/17 14:42 75 16 121/70 01/20/17 11:52 63 20 132/87 100 Room Air 01/20/17 10:00 36.9 100 20 121/83 98 Room Air Physical Exam VITALS: Vitals are noted on the nurse's note and reviewed by myself. Vital signs stable. GENERAL: This is a 21-year-old female, in no acute distress, nondiaphoretic, well-developed well-nourished. HEENT: PERRLA. Mucous membranes moist. Neck is supple without nuchal rigidity. HEART: Regular rate and rhythm without murmurs gallops or rubs. LUNGS: Clear to auscultation bilaterally without wheezes, rales or rhonchi. ABDOMEN: Positive bowel sounds x 4. Soft, tenderness over the epigastric region. No guarding or rebound tenderness. NEURO: Patient was alert and oriented to person place and time. Medical Decision & Procedures ER Provider Diagnostic Interpretation: ULTRASOUND RIGHT UPPER QUADRANT ABDOMEN FINDINGS: Liver: The liver is normal in size and echotexture. There is no intrahepatic biliary ductal dilatation. The main portal vein is patent. Gallbladder: The gallbladder is normal in appearance. No gallstones are identified. There is no gallbladder wall thickening or pericholecystic fluid. A sonographic Solorzano's sign is reportedly absent. The common bile duct measures up to 0.5 cm in diameter. Pancreas: Visualized portions of the pancreatic head and body are normal in appearance. The splenic vein is patent. Right kidney: Survey images of the right kidney demonstrate normal size and echotexture. There is no hydronephrosis. Ascites: None. IMPRESSION: Unremarkable sonographic assessment of the right upper quadrant. No gallstones are identified. Laboratory Results 01/20/17 10:25 Red Blood Count 4.49, Mean Corpuscular Volume 89.8, Mean Corpuscular Hemoglobin 30.7, Mean Corpuscular Hemoglobin Concent 34.2, Mean Platelet Volume 9.2, Neutrophils (%) (Auto) 79.1, Lymphocytes (%) (Auto) 13.7, Monocytes (%) (Auto) 6.3, Eosinophils (%) (Auto) 0.5, Basophils (%) (Auto) 0.2, Neutrophils # (Auto) 10.41, Lymphocytes # (Auto) 1.81, Monocytes # (Auto) 0.83, Eosinophils # (Auto) 0.07, Basophils # (Auto) 0.02 01/20/17 10:25 Test 01/20/17 10:25 01/20/17 11:55 White Blood Count 13.17 K/uL (4.8-10.8) Red Blood Count 4.49 M/uL (4.2-5.4) Hemoglobin 13.8 g/dL (12.0-16.0) Hematocrit 40.3 % (37-47) Mean Corpuscular Volume 89.8 fL (80-100) Mean Corpuscular Hemoglobin 30.7 pg (25-34) Mean Corpuscular Hemoglobin Concent 34.2 g/dl (32-36) Platelet Count 264 K/uL (130-400) Mean Platelet Volume 9.2 fL (7.4-10.4) Neutrophils (%) (Auto) 79.1 % Lymphocytes (%) (Auto) 13.7 % Monocytes (%) (Auto) 6.3 % Eosinophils (%) (Auto) 0.5 % Basophils (%) (Auto) 0.2 % Neutrophils # (Auto) 10.41 K/uL (1.4-6.5) Lymphocytes # (Auto) 1.81 K/uL (1.2-3.4) Monocytes # (Auto) 0.83 K/uL (0.11-0.59) Eosinophils # (Auto) 0.07 K/uL (0-0.5) Basophils # (Auto) 0.02 K/uL (0-0.2) RDW Standard Deviation 47.1 fL (36.4-46.3) RDW Coefficient of Variation 14.4 % (11.5-14.5) Immature Granulocyte % (Auto) 0.2 % Immature Granulocyte # (Auto) 0.03 K/uL (0.00-0.02) Anion Gap 8.0 mmol/L (3-11) Est Creatinine Clear Calc Drug Dose 116.5 ml/min Estimated GFR () 130.2 Estimated GFR (Non- 112.4 BUN/Creatinine Ratio 15.7 (10-20) Calcium Level 9.0 mg/dl (8.5-10.1) Total Bilirubin 0.9 mg/dl (0.2-1) Aspartate Amino Transf (AST/SGOT) 7 U/L (15-37) Alanine Aminotransferase (ALT/SGPT) 16 U/L (12-78) Alkaline Phosphatase 58 U/L (45-117) Total Protein 8.3 gm/dl (6.4-8.2) Albumin 4.5 gm/dl (3.4-5.0) Globulin 3.8 gm/dl (2.5-4.0) Albumin/Globulin Ratio 1.2 (0.9-2) Lipase 97 U/L (73-393) Urine Color YELLOW Urine Appearance CLOUDY (CLEAR) Urine pH 6.0 (4.5-7.5) Urine Specific [place] 1.019 (1.000-1.030) Urine Protein NEG (NEG) Urine Glucose (UA) NEG (NEG) Urine Ketones TRACE (NEG) Urine Occult Blood NEG (NEG) Urine Nitrite NEG (NEG) Urine Bilirubin NEG (NEG) Urine Urobilinogen NEG (NEG) Urine Leukocyte Esterase SMALL (NEG) Urine WBC (Auto) 10-30 /hpf (0-5) Urine RBC (Auto) 0-4 /hpf (0-4) Urine Hyaline Casts (Auto) 1-5 /lpf (0-5) Urine Epithelial Cells (Auto) >30 /lpf (0-5) Urine Bacteria (Auto) NEG (NEG) Urine Test NEG (NEG) Date/Time Source Procedure Growth Status 01/20/17 11:55 Urine , Clean Catch Urine Culture - Final THREE TYPES OF ORGANISMS PRESENT, ALL... Complete Medications Administered Medications (Trade) Dose Ordered Sig/Nelson Route Start Time Stop Time Status Last Admin Dose Admin Sodium Chloride 1,000 ml @ 999 mls/hr Q1H1M STAT IV 01/20/17 10:21 01/20/17 11:21 DC 01/20/17 10:32 999 MLS/HR Ondansetron HCl (Zofran Inj) 4 mg NOW STAT IV 01/20/17 10:21 01/20/17 10:23 DC 01/20/17 10:32 4 MG Morphine Sulfate (MoRPHine SULFATE INJ) 2 mg STK-MED ONCE .ROUTE 01/20/17 10:27 01/20/17 10:28 DC 01/20/17 10:34 2 MG Morphine Sulfate (MoRPHine SULFATE INJ) 4 mg STK-MED ONCE .ROUTE 01/20/17 10:27 01/20/17 10:28 DC 01/20/17 10:33 4 MG Al Hydroxide/Mg Hydroxide (Maalox Susp) 30 ml STK-MED ONCE .ROUTE 01/20/17 11:39 01/20/17 11:40 DC 01/20/17 11:51 30 ML Lidocaine HCl (Viscous Lidocaine 2% Soln) 20 ml STK-MED ONCE .ROUTE 01/20/17 11:39 01/20/17 11:40 DC 01/20/17 11:51 20 ML Morphine Sulfate (MoRPHine SULFATE INJ) 4 mg NOW STAT IV 01/20/17 14:04 01/20/17 14:05 DC 01/20/17 14:44 4 MG Medical Decision Differential diagnosis includes gastritis, gastritis, cholecystitis, pancreatitis, pelvic inflammatory disease, bowel obstruction, pyelonephritis, among others. The patient is a 21-year-old female who presents today complaining of epigastric abdominal pain, vomiting and diarrhea. Patient has been seen here for this in the past. She has had extensive workups for these similar symptoms , including an admission one month ago. At that time, she had a mildly elevated lipase and was admitted for suspected pancreatitis. However, imaging showed no evidence of pancreatitis. She was treated for possible pelvic inflammatory disease, however review of pelvic cultures shows that these were negative. The patient is not complaining of pelvic pain at this time. Her complaints are of epigastric pain and nausea/vomiting. I feel the symptoms may be secondary to gastritis and recommended GI follow-up. She will be placed on Prilosec. She was also advised to follow-up with her primary care provider for a recheck. The patient's case was reviewed with Dr. Brown, ED attending physician, who agreed with my assessment and treatment plan. Based on the patient's presentation and work up, I feel the patient is stable for outpatient treatment. The patient was educated to return to the emergency department for any worsening of their current condition or new/concerning symptoms. She will follow up with her PCP and solar sales assessor. [place] Drug Monitoring Program Search Results: patient reviewed within database, no issues identified Medication Reconcilliation Current Medication List: was personally reviewed by me Blood Pressure Screening Patient's blood pressure: Normal blood pressure Impression Primary Impression: Epigastric abdominal pain Departure Information Dispostion Home / Self-Care Condition GOOD Prescriptions Omeprazole (PRILOSEC) 40 Mg Cap 40 MG PO DAILY for 14 Days, #14 CAP Prov: Belén Elaine PA-C 01/20/17 Ondasetron Odt (ZOFRAN ODT) 4 Mg Tab 4 MG SL Q6H for Nausea, #15 TAB Prov: Belén Elaine PA-C 01/20/17 Hydrocodone/Acetaminophen 5MG/325MG ([place] 5MG/325MG) Tab 1-2 TABLET PO Q4H Y for Pain, #10 TAB For Initial Treatment Prov: Belén Elaine .JAIRO 01/20/17 Referrals No Doctor, Assigned (PCP) Patient Instructions GERD Lifestyle Changes, My [facility] Additional Instructions You have been treated in the Emergency Department your Abdominal Pain. Laboratory results and imaging studies have ruled out any emergent causes for your abdominal pain which would warrant admission or surgery. Prilosec as prescribed. You have been prescribed [place] to be used for pain control. This is a narcotic medication. You cannot drive or consume alcohol while on this medicine. This medicine should only be used for pain that cannot be controlled with over-the- counter pain medicines. You have been prescribed Zofran to be used for any nausea or vomiting. Take as prescribed. For pain control, you can use the following qhtr-hes-vrrdxno medicines (if >12 yo): - Regular strength (325mg/tab) Tylenol (acetaminophen) 2 tabs every 4-6 hours as needed. Do not exceed 12 tablets in a 24 hour period. Avoid taking more than 4 grams (4000 mg) of Tylenol per day. This includes any other sources of acetaminophen you may take on a regular basis. - Regular strength (200 mg/tab) Advil (ibuprofen) 1-2 tabs every 4-6 hours as needed. Do not exceed a dose of 3200 mg per day. Drink plenty of water and stay well hydrated. As with any trip to the Emergency Department, you should follow-up with your Primary Care Provider from today's visit. You may also follow-up with solar sales assessor. You have been provided with the information for the solar sales assessor functional analyst. Return to the emergency department if your symptoms persist despite treatment plan outlined above or if the following symptoms occur: increased fevers, chills , worsening nausea/vomiting, blood in your stool or urine.
[2017-01-20 10:44] LABS: BASO % 0.2 %; BASO ABS # 0.02 K/uL (0-0.2); COMPLETE YES; EOS % 0.5 %; HEMATOCRIT 40.3 % (37-47); IG% 0.2 %; LYMPH % 13.7 %; LYMPH ABS # 1.81 K/uL (1.2-3.4); MEAN CELL VOLUME 89.8 fL (80-100); MEAN CORPUSCULAR HEMOGLOBIN 30.7 pg (25-34); MEAN CORPUSCULAR HGB CONC 34.2 g/dl (32-36); MEAN PLATELET VOLUME 9.2 fL (7.4-10.4); MONO % 6.3 %; NEUT % 79.1 %; PLATELET COUNT 264 K/uL (130-400); RED BLOOD COUNT 4.49 M/uL (4.2-5.4); WHITE BLOOD COUNT 13.17 K/uL (4.8-10.8)
[2017-01-20 11:03] LABS: BUN/CREATININE RATIO 15.7 (10-20); CREATININE 0.75 mg/dl (0.60-1.20)
[2017-01-20 11:05] LABS: ALB/GLOB RATIO 1.2 (0.9-2)
[2017-01-20] MEDS ORDERED: GI COCKTAIL PO STA (11:09)
[2017-01-20] MEDS ORDERED: ALUMINUM/MAGNESIUM SUSP 30 ML UDC ONE (11:39)
[2017-01-20] MEDS ORDERED: LIDOCAINE HCL 2% VISC SOLN 20 ML UDC ONE (11:39)
[2017-01-20 12:09] LABS: PREG INTERNAL NEGATIVE QC NEG CLEAR BACKGROUND; PREG INTERNAL POSITIVE QC POS CONTROL LINE; URINE APPEARANCE CLOUDY (CLEAR); URINE BILIRUBIN NEG (NEG); URINE COLOR YELLOW; URINE EPITHELIAL CELL AUTO >30 /lpf (0-5); URINE NITRITE NEG (NEG); URINE SPECIFIC GRAVITY 1.019 (1.000-1.030); UROBILINOGEN NEG (NEG); ZZUR CULT IF INDIC CLEAN CATCH YES
[2017-01-20 12:10] LABS: MANUAL MICROSCOPIC REQUIRED? NO; REVIEW REQ? NO
--- NOTE | 2017-01-20 13:17 | DIAGNOSTIC IMAGING REPORT ---
ULTRASOUND RIGHT UPPER QUADRANT ABDOMEN CLINICAL HISTORY: Epigastric abdominal pain. Vomiting.. COMPARISON STUDY: Abdominal CT dated 12/17/2016. TECHNIQUE: Real-time, grayscale, and color flow sonography of the right upper quadrant of the abdomen was performed. Images are reviewed in the transverse and longitudinal planes. FINDINGS: Liver: The liver is normal in size and echotexture. There is no intrahepatic biliary ductal dilatation. The main portal vein is patent. Gallbladder: The gallbladder is normal in appearance. No gallstones are identified. There is no gallbladder wall thickening or pericholecystic fluid. A sonographic Solorzano's sign is reportedly absent. The common bile duct measures up to 0.5 cm in diameter. Pancreas: Visualized portions of the pancreatic head and body are normal in appearance. The splenic vein is patent. Right kidney: Survey images of the right kidney demonstrate normal size and echotexture. There is no hydronephrosis. Ascites: None. IMPRESSION: Unremarkable sonographic assessment of the right upper quadrant. No gallstones are identified. Electronically signed by: Giorgio Martinez M.D. 01/20/2017 1:15 PM Dictated Date/Time: 01/20/2017 1:07 PM
[2017-01-20] MEDS ORDERED: MoRPHine SULFATE 4 MG/ML 1 ML CARP\\VIAL IV STA (14:04)
[2017-01-20] MEDS ORDERED: HYDR-5688 PO (15:04)
[2017-01-20] MEDS ORDERED: ONDA4TAB10 SL (15:04)
[2017-01-20] MEDS ORDERED: OMEP40CA41 PO (15:04)
[2017-01-20 15:22] VITALS: BP 107/58; PULSE 68; O2SAT 98
[2017-01-21] MEDS ORDERED: ESCI1TAB10 PO (06:08)
[2017-01-21] MEDS ORDERED: AMPH20TA2 PO (06:09)
[2017-01-21] MEDS ORDERED: OMEP40CA41 PO (20:53)
[2017-01-21] MEDS ORDERED: ONDA4TAB10 SL (20:53)
[2017-01-24] MEDS ORDERED: DICY10CA55 PO (13:14)
== END 2017-01-20 15:23 | disposition home or self-care (01) ==
LOC: C.EDB 09:58
DX: R10.13 Epigastric pain (principal); K86.1 Other chronic pancreatitis; Z79.899 Other long term (current) drug therapy

== ENCOUNTER 2017-01-21 18:39 | Observation (INO) | payer OTHER ==
[~2017-01-21] VITALS: Ht 162.6 cm; Wt 76.9 kg
[~2017-01-21 18:39] MED LIST changes: +AMPH20TA2 PO; -DXY100 PO; +ESCI1TAB10 PO; +HYDR-5688 PO; +OMEP40CA41 PO; +ONDA4TAB10 SL
[2017-01-21] MEDS ORDERED: SODIUM CHLORIDE 0.9% 1000ML 1,000 ML IV STA (20:26)
[2017-01-21] MEDS ORDERED: MoRPHine SULFATE 4 MG/ML 1 ML CARP\\VIAL IV STA ×2 (20:26→22:00)
[2017-01-21] MEDS ORDERED: SODIUM CHLORIDE 0.9% 1000ML 1,000 ML IV ONE (20:26)
[2017-01-21] MEDS ORDERED: ONDANSETRON INJ 2 MG/ML 2 ML VIAL IV STA ×2 (20:26→23:01)
[2017-01-21 20:39] LABS: BASO % 0.4 %; BASO ABS # 0.04 K/uL (0-0.2); COMPLETE YES; EOS % 1.1 %; IG% 0.3 %; LYMPH % 24.8 %; LYMPH ABS # 2.78 K/uL (1.2-3.4); MEAN CELL VOLUME 90.3 fL (80-100); MEAN CORPUSCULAR HEMOGLOBIN 31.2 pg (25-34); MEAN CORPUSCULAR HGB CONC 34.5 g/dl (32-36); MEAN PLATELET VOLUME 9.4 fL (7.4-10.4); MONO % 6.7 %; NEUT % 66.7 %; PLATELET COUNT 283 K/uL (130-400); RED BLOOD COUNT 4.87 M/uL (4.2-5.4); WHITE BLOOD COUNT 11.23 K/uL (4.8-10.8)
[2017-01-21 20:50] LABS: BUN/CREATININE RATIO 11.7 (10-20); CALCIUM 9.9 mg/dl (8.5-10.1); CREATININE 0.82 mg/dl (0.60-1.20); POTASSIUM 3.8 mmol/L (3.5-5.1)
[2017-01-21] MEDS ORDERED: OMEP40CA41 PO (20:53)
[2017-01-21] MEDS ORDERED: ONDA4TAB10 SL (20:53)
[2017-01-21 21:09] LABS: PREG INTERNAL NEGATIVE QC NEG CLEAR BACKGROUND; PREG INTERNAL POSITIVE QC POS CONTROL LINE
[2017-01-21 21:40] LABS: URINE APPEARANCE CLEAR (CLEAR); URINE BILIRUBIN NEG (NEG); URINE COLOR YELLOW; URINE EPITHELIAL CELL AUTO >30 /lpf (0-5); URINE NITRITE NEG (NEG); URINE SPECIFIC GRAVITY 1.019 (1.000-1.030); UROBILINOGEN NEG (NEG)
[2017-01-21 21:42] LABS: MANUAL MICROSCOPIC REQUIRED? NO; REVIEW REQ? NO
[2017-01-21] MEDS ORDERED: MoRPHine SULFATE 2 MG/ML CARP IV STA (23:01)
--- NOTE | 2017-01-21 23:15 | EMERGENCY ROOM VISIT NOTE ---
History Report prepared by Zac: Chelo Franklin Under the Supervision of: Dr. Demian West M.D. First contact with patient: 20:14 Chief Complaint: ABDOMINAL PAIN Stated Complaint: ABDOMINAL PAIN, STOMACH ACHE, BACK/EXTREME PAIN Nursing Triage Summary: mother reports pt has had abdmoninal problems "for over a year." pt was seen in ED yesterday. associates n/v. states "i can't keep anything down." History of Present Illness The patient is a 21 year old female who presents to the Emergency Room with complaints of constant abdominal pain beginning 4 days. The patient states that she has been having abdominal pain intermittently for over a year. She reports that her most recent episode of pain started 4 days ago. She notes that she has had nausea and vomiting and is not able to keep anything down. The patient states that she has had diarrhea and nothing worsens or relieves her symptoms. She notes that she was seen here yesterday and her pain was not relieved. She states that her PCP would not refer her to a specialist and she has never seen a GI doctor. The patient denies any recent trauma, urinary symptoms, fever, smoking history, and heavy alcohol use. She reports that her pain goes from below her sternum to her belly button Source of History: patient Onset: 4 days ago Position: abdomen Timing: constant Modifying Factors (Worsening): other (none) Modifying Factors (Relieving): other (none) Associated Symptoms: + nausea, + vomiting, + diarrhea, No fevers, No urinary symptoms Review of Systems See HPI for pertinent positives & negatives. A total of 10 systems reviewed and were otherwise negative. Past Medical & Surgical Medical Problems: (1) Active labor at term (2) Tubo-ovarian abscess Old medical records were reviewed. Nurse's notes were reviewed and I agree with. Family History No pertinent family history stated. Social History Smoking Status: Never Smoker Drug Use: none Marital Status: in relationship Housing Status: lives with family Occupation Status: employed Current/Historical Medications Scheduled Amphetamine-Dextroamphetamine 20MG (Adderall 20MG), 20 MG PO DAILY Escitalopram Oxalate (Lexapro), 20 MG PO DAILY Omeprazole (Prilosec), 40 MG PO DAILY Scheduled PRN Hydrocodone/Acetaminophen 5MG/325MG ([place] 5MG/325MG), 1-2 TABLET PO Q4H PRN for Pain Ondasetron Odt (Zofran Odt), 4 MG SL Q6H PRN for Nausea Allergies Coded Allergies: No Known Allergies (Unverified , 01/20/17) Physical Exam Vital Signs Date Time Temp Pulse Resp B/P (MAP) Pulse Ox O2 Delivery O2 Flow Rate FiO2 01/21/17 22:36 36.8 75 18 123/78 97 Room Air 01/21/17 20:55 36.8 78 18 139/92 97 Room Air 01/21/17 18:50 36.8 92 18 137/77 97 Room Air Physical Exam General: Non-ill appearing uncomfortable young female in no acute distress. Complaining of abdominal pain. HEENT: Normal cephalic atraumatic. Pupils are equal round and reactive to light. Extraocular movements are intact. Oropharynx is pink with moist mucous membranes. No swelling of the mouth lips or tongue. Neck: Supple with a midline trachea. No meningeal signs or stiffness, no JVD or bruits. No Stridor. Chest: Clear to auscultation bilaterally. No wheezes or rhonchi. No increased work of breathing. Heart: regular rate and rhythm. Abdomen: Soft, tender mostly in epigastric area, nondistended without rebound guarding or rigidity. Extremities: No cyanosis clubbing or edema. No calf tenderness or assymetry Spine/Back. Non tender to palpation. No CVA tenderness Skin: Good turgor without rashes. Neurologic exam: Cranial nerves two through 12 are intact. Motor and sensation are intact and symmetrical throughout. Medical Decision & Procedures Laboratory Results 01/21/17 20:23 Red Blood Count 4.87, Mean Corpuscular Volume 90.3, Mean Corpuscular Hemoglobin 31.2, Mean Corpuscular Hemoglobin Concent 34.5, Mean Platelet Volume 9.4, Neutrophils (%) (Auto) 66.7, Lymphocytes (%) (Auto) 24.8, Monocytes (%) (Auto) 6.7, Eosinophils (%) (Auto) 1.1, Basophils (%) (Auto) 0.4, Neutrophils # (Auto) 7.51, Lymphocytes # (Auto) 2.78, Monocytes # (Auto) 0.75, Eosinophils # (Auto) 0.12, Basophils # (Auto) 0.04 01/21/17 20:23 Test 01/21/17 20:23 01/21/17 21:23 White Blood Count 11.23 K/uL (4.8-10.8) Red Blood Count 4.87 M/uL (4.2-5.4) Hemoglobin 15.2 g/dL (12.0-16.0) Hematocrit 44.0 % (37-47) Mean Corpuscular Volume 90.3 fL (80-100) Mean Corpuscular Hemoglobin 31.2 pg (25-34) Mean Corpuscular Hemoglobin Concent 34.5 g/dl (32-36) Platelet Count 283 K/uL (130-400) Mean Platelet Volume 9.4 fL (7.4-10.4) Neutrophils (%) (Auto) 66.7 % Lymphocytes (%) (Auto) 24.8 % Monocytes (%) (Auto) 6.7 % Eosinophils (%) (Auto) 1.1 % Basophils (%) (Auto) 0.4 % Neutrophils # (Auto) 7.51 K/uL (1.4-6.5) Lymphocytes # (Auto) 2.78 K/uL (1.2-3.4) Monocytes # (Auto) 0.75 K/uL (0.11-0.59) Eosinophils # (Auto) 0.12 K/uL (0-0.5) Basophils # (Auto) 0.04 K/uL (0-0.2) RDW Standard Deviation 47.6 fL (36.4-46.3) RDW Coefficient of Variation 14.4 % (11.5-14.5) Immature Granulocyte % (Auto) 0.3 % Immature Granulocyte # (Auto) 0.03 K/uL (0.00-0.02) Anion Gap 4.0 mmol/L (3-11) Est Creatinine Clear Calc Drug Dose 107.1 ml/min Estimated GFR () 116.9 Estimated GFR (Non- 100.9 BUN/Creatinine Ratio 11.7 (10-20) Calcium Level 9.9 mg/dl (8.5-10.1) Total Bilirubin 0.3 mg/dl (0.2-1) Direct Bilirubin 0.1 mg/dl (0-0.2) Aspartate Amino Transf (AST/SGOT) 15 U/L (15-37) Alanine Aminotransferase (ALT/SGPT) 18 U/L (12-78) Alkaline Phosphatase 64 U/L (45-117) Total Protein 9.4 gm/dl (6.4-8.2) Albumin 5.0 gm/dl (3.4-5.0) Lipase 101 U/L (73-393) Human Chorionic Gonadotropin, Qual NEG (NEG) Urine Color YELLOW Urine Appearance CLEAR (CLEAR) Urine pH 5.0 (4.5-7.5) Urine Specific [place] 1.019 (1.000-1.030) Urine Protein NEG (NEG) Urine Glucose (UA) NEG (NEG) Urine Ketones NEG (NEG) Urine Occult Blood NEG (NEG) Urine Nitrite NEG (NEG) Urine Bilirubin NEG (NEG) Urine Urobilinogen NEG (NEG) Urine Leukocyte Esterase TRACE (NEG) Urine WBC (Auto) 1-5 /hpf (0-5) Urine RBC (Auto) 0-4 /hpf (0-4) Urine Hyaline Casts (Auto) 0 /lpf (0-5) Urine Epithelial Cells (Auto) >30 /lpf (0-5) Urine Bacteria (Auto) NEG (NEG) Laboratory studies as stated above per my review. Medications Administered Medications (Trade) Dose Ordered Sig/Nelson Route Start Time Stop Time Status Last Admin Dose Admin Sodium Chloride 1,000 ml @ 999 mls/hr Q1H1M STAT IV 01/21/17 20:26 01/21/17 21:26 DC 01/21/17 20:36 999 MLS/HR Sodium Chloride 1,000 ml @ 200 mls/hr Q5H ONCE IV 01/21/17 20:26 01/22/17 01:25 01/21/17 21:26 200 MLS/HR Ondansetron HCl (Zofran Inj) 4 mg NOW STAT IV 01/21/17 20:26 01/21/17 20:28 DC 01/21/17 20:34 4 MG Morphine Sulfate (MoRPHine SULFATE INJ) 4 mg NOW STAT IV 01/21/17 20:26 01/21/17 20:28 DC 01/21/17 20:35 4 MG Morphine Sulfate (MoRPHine SULFATE INJ) 4 mg NOW STAT IV 01/21/17 22:00 01/21/17 22:01 DC 01/21/17 22:11 4 MG Ondansetron HCl (Zofran Inj) 4 mg NOW STAT IV 01/21/17 23:01 01/21/17 23:03 DC 01/21/17 23:09 4 MG Morphine Sulfate (MoRPHine SULFATE INJ) 2 mg NOW STAT IV 01/21/17 23:01 01/21/17 23:03 DC 01/21/17 23:10 2 MG ED Course 2016: Past medical records reviewed. The patient was evaluated in room C3, and a complete history and physical examination were performed. 2025: Morphine Sulfate 4mg IV, Zofran Inj 4mg IV, Sodium Chloride 1000 ml @ 200 mls/hr IV, Sodium Chloride 1000 ml @ 999 mls/hr IV. 2034: I reevaluated and updated the patient. 2199: Morphine Sulfate 4mg IV. 2210: I reevaluated the patient. She is doing well and her pain is coming back. 0: I spoke to the patient. She feels that she is in too much pain to go home. 225: Discussed the patient's case with Dr. Vital of [facility]. The patient will be evaluated for further management. 225: Upon reevaluation, the patient is doing well. I discussed the results and treatment plan with the patient. She verbalized agreement of the treatment plan. The patient will be evaluated for further management. Medical Decision Differentials include, but are not limited to; gastritis, pancreatitis, , electrolyte or metabolic abnormality. This patient comes in as described above she has epigastric and diffuse abdominal pain. She seen her yesterday for the same complaints and affect is normal for month or so. She was admitted just over a month ago for same complaints at that time her lipase is mildly elevated initially but came down CAT scan her abdomen was unremarkable. She blood work and ultrasound yesterday which were unremarkable including unremarkable lipase. She appears uncomfortable on exam and says that the pain medications makes it better but she feels worse after it wears off. She has had some nausea by diarrhea and has been vomiting. IV access established and he was hydrated with IV normal saline. She has no white count or fever to suggest infection. She's had no acute electrolyte or metabolic abnormalities. test is negative. She has nothing to suggest gallbladder, liver, pancreas disease. I do not repeat the ultrasound as she had one yesterday. She also a CAT scan of her similar complaints about a month ago. I do think she will need GI evaluation. She's had several doses of IV morphine and IV Zofran still feels intermittently uncomfortable and does not feel she can go home I have consult the [facility] hospitalist to see her as Dr. Olvera is her regular doctor. Medication Reconcilliation Current Medication List: was personally reviewed by me Blood Pressure Screening Patient's blood pressure: Elevated blood pressure Blood pressure disposition: Elevated BP felt to be situational Consults Time Called: 2249 Consulting Physician: Dr. Vital - Maria R Returned Call: [phone] Discussed the patient's case with Dr. Vital of [facility]. The patient will be evaluated for further management. Impression Primary Impression: Epigastric abdominal pain Additional Impression: Intractable pain Scribe Attestation The scribe's documentation has been prepared under my direction and personally reviewed by me in its entirety. I confirm that the note above accurately reflects all work, treatment, procedures, and medical decision making performed by me. Departure Information Dispostion Being Evaluated By Hospitalist Referrals No Doctor, Assigned (PCP) Patient Instructions My [facility] Problem Qualifiers
--- NOTE | 2017-01-21 23:38 | History and Physical ---
History & Physical Date & Time of Service: Jan 21, 2017 at 23:36 Chief Complaint: Abdominal Pain, Stomach Ache, Back/Extreme Pain Primary Care Physician: Lamar Dang D.O. History of Present Illness Source: patient Patient is 21 yr female with PMH of ADHD, depression, PID, GERD and ovarian cyst presents with history of intractable epigastric pain associated with nausea , vomiting and intermittent diarrhea since many moths duration. Patient is tearful during the encounter. She states her symptoms have been going on since many months and she was recently discharged from [facility] after being treated for similar symptoms. She reports she had PID in March 2016 and was treated for it. Currently states epigastric pain is sharp, constant, burning like, radiated down her abdomen, worsens with food intake and se has been taking over the counter NSAIDs on a daily basis to control her pain. She denies any relieving factors. Also reports nausea, vomiting, decreased appetite and inability to keep the food. Reports weight loss of about 40 pounds in 1 yr which was not intentional. Denies having had EGD/Colonoscopy in the past. Denies any history of chest pain, SOB, cough, headache, fever, blood in stools, urinary symptoms, hematuria, dysuria. She states she follows with an OBGYN and denies any vaginal/ Urethral discharge. Past Medical/Surgical History PMH of ADHD, depression, PID, GERD and ovarian cyst Past Surgical History: [place] tooth removed Family History Father; Unknown GI problems, HTN, Heart disease Social History Smoking Status: Former Smoker (Quit 3 yrs ago) Alcohol Use: socially Drug Use: none Marital Status: in relationship Occupational Status: employed Allergies Coded Allergies: No Known Allergies (Unverified , 01/20/17) Home Medications Scheduled Amphetamine-Dextroamphetamine 20MG (Adderall 20MG), 20 MG PO DAILY Escitalopram Oxalate (Lexapro), 20 MG PO DAILY Omeprazole (Prilosec), 40 MG PO DAILY Scheduled PRN Hydrocodone/Acetaminophen 5MG/325MG ([place] 5MG/325MG), 1-2 TABLET PO Q4H PRN for Pain Ondasetron Odt (Zofran Odt), 4 MG SL Q6H PRN for Nausea Review of Systems See HPI for pertinent positives & negatives. A total of 10 systems reviewed and were otherwise negative. Physical Exam Vital Signs Date Time Temp Pulse Resp B/P (MAP) Pulse Ox O2 Delivery O2 Flow Rate FiO2 01/21/17 22:36 36.8 75 18 123/78 97 Room Air 01/21/17 20:55 36.8 78 18 139/92 97 Room Air 01/21/17 18:50 36.8 92 18 137/77 97 Room Air General Appearance: WD/WN, + mild distress (Secondary to pain), + pertinent finding (Tearful during encounter) Head: normocephalic, atraumatic Eyes: normal inspection, PERRL, EOMI, sclerae normal ENT: normal ENT inspection, hearing grossly normal Neck: supple, no JVD, trachea midline Respiratory/Chest: chest non-tender, lungs clear, normal breath sounds, no respiratory distress, no accessory muscle use Cardiovascular: regular rate, rhythm, no edema, no murmur Abdomen/GI: normal bowel sounds, soft, + tenderness (Epigastric) Back: normal inspection Neurologic/Psych: 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 nml as tested, no motor/sensory deficits, alert, normal mood/affect, oriented x 3 Skin: normal color, warm/dry Diagnostics Laboratory Results Results Past 24 Hours Test 01/21/17 20:23 01/21/17 21:23 Range/Units White Blood Count 11.23 4.8-10.8 K/uL Red Blood Count 4.87 4.2-5.4 M/uL Hemoglobin 15.2 12.0-16.0 g/dL Hematocrit 44.0 37-47 % Mean Corpuscular Volume 90.3 80-100 fL Mean Corpuscular Hemoglobin 31.2 25-34 pg Mean Corpuscular Hemoglobin Concent 34.5 32-36 g/dl Platelet Count 283 130-400 K/uL Mean Platelet Volume 9.4 7.4-10.4 fL Neutrophils (%) (Auto) 66.7 % Lymphocytes (%) (Auto) 24.8 % Monocytes (%) (Auto) 6.7 % Eosinophils (%) (Auto) 1.1 % Basophils (%) (Auto) 0.4 % Neutrophils # (Auto) 7.51 1.4-6.5 K/uL Lymphocytes # (Auto) 2.78 1.2-3.4 K/uL Monocytes # (Auto) 0.75 0.11-0.59 K/uL Eosinophils # (Auto) 0.12 0-0.5 K/uL Basophils # (Auto) 0.04 0-0.2 K/uL RDW Standard Deviation 47.6 36.4-46.3 fL RDW Coefficient of Variation 14.4 11.5-14.5 % Immature Granulocyte % (Auto) 0.3 % Immature Granulocyte # (Auto) 0.03 0.00-0.02 K/uL Sodium Level 134 136-145 mmol/L Potassium Level 3.8 3.5-5.1 mmol/L Chloride Level 102 98-107 mmol/L Carbon Dioxide Level 29 21-32 mmol/L Anion Gap 4.0 3-11 mmol/L Blood Urea Nitrogen 10 7-18 mg/dl Creatinine 0.82 0.60-1.20 mg/dl Est Creatinine Clear Calc Drug Dose 107.1 ml/min Estimated GFR () 116.9 Estimated GFR (Non- 100.9 BUN/Creatinine Ratio 11.7 10-20 Random Glucose 91 70-99 mg/dl Calcium Level 9.9 8.5-10.1 mg/dl Total Bilirubin 0.3 0.2-1 mg/dl Direct Bilirubin 0.1 0-0.2 mg/dl Aspartate Amino Transf (AST/SGOT) 15 15-37 U/L Alanine Aminotransferase (ALT/SGPT) 18 12-78 U/L Alkaline Phosphatase 64 45-117 U/L Total Protein 9.4 6.4-8.2 gm/dl Albumin 5.0 3.4-5.0 gm/dl Lipase 101 73-393 U/L Human Chorionic Gonadotropin, Qual NEG NEG Urine Color YELLOW Urine Appearance CLEAR CLEAR Urine pH 5.0 4.5-7.5 Urine Specific [place] 1.019 1.000-1.030 Urine Protein NEG NEG Urine Glucose (UA) NEG NEG Urine Ketones NEG NEG Urine Occult Blood NEG NEG Urine Nitrite NEG NEG Urine Bilirubin NEG NEG Urine Urobilinogen NEG NEG Urine Leukocyte Esterase TRACE NEG Urine WBC (Auto) 1-5 0-5 /hpf Urine RBC (Auto) 0-4 0-4 /hpf Urine Hyaline Casts (Auto) 0 0-5 /lpf Urine Epithelial Cells (Auto) >30 0-5 /lpf Urine Bacteria (Auto) NEG NEG Microbiology Results 01/21/17 Urine Culture, Received Pending Diagnostic Radiology ABD USD and KUB pending Impression Assessment and Plan Epigastric Abdominal Pain: Unclear etiology DD:Peptic ulcer disease, Gastritis, Esophagitis, Pancreatitis less likely, NSAIDs induced H/O GERD Recently had CT ABD/Vaginal/pelvic USD Lipase normal USD ABD/KUB pending May need Endoscopy Pain control, IV fluids, antiemetics check stool for cdiff IV ranitidine NPO for now GI consulted Mild leukocytosis, will hold off on Abx for now check drug screen ADHD/ depression: Stable Continue home meds H/O PID and Ovarian Cyst: Follows with OBGYN Denies any Urethral/Vaginal discharge DVT Px: SCDs, encourage to ambulate Code Status: Full Code Disposition: Admit in Med/surg VTE Prophylaxis VTE Risk Assessment Done? Y/N: Yes Risk Level: Low
[2017-01-22 00:17] LABS: BENZODIAZEPINE, URINE NEG (NEG); COCAINE,URINE NEG (NEG); PHENCYCLIDINE, URINE NEG (NEG)
[2017-01-22 00:30] VITALS: BP 112/75; PULSE 56; TEMP 36.8; O2SAT 98; Ht 162.6 cm; Wt 76.9 kg
[2017-01-22] MEDS ORDERED: IV FLUIDS COMPLETED PRN (00:30)
--- NOTE | 2017-01-22 00:36 | DIAGNOSTIC IMAGING REPORT ---
ULTRASOUND ABDOMEN COMPLETE CLINICAL HISTORY: Epigastric abdominal pain. COMPARISON STUDY: Abdominal CT dated 12/17/2016. TECHNIQUE: Real-time, grayscale, and color flow sonography of the abdomen was performed. Images are reviewed in the transverse and longitudinal planes. FINDINGS: Liver: The liver is normal in size and echotexture. There is no intrahepatic biliary ductal dilatation. The main portal vein is patent. Gallbladder: The gallbladder is normal in appearance. No gallstones are identified. There is no gallbladder wall thickening or pericholecystic fluid. A sonographic Solorzano's sign is reportedly absent. The common bile duct measures up to 1.0 cm in diameter. Pancreas: Visualized portions of the pancreatic head and body are normal in appearance. The splenic vein is patent. Spleen: The spleen is normal in size and echotexture, measuring 9.1 cm in length. Kidneys: The kidneys are normal in size and echotexture. There is no hydronephrosis. The right kidney measures 11.8 cm in length and the left kidney measures 10.0 cm in length. No shadowing calculi are identified. Abdominal vasculature: Visualized portions of the abdominal aorta and IVC are patent. Linear shadows within the abdominal aorta likely represent artifact. Ascites: None. IMPRESSION: 1. No gallstones are seen. 2. The common bile duct measures 1.0 cm on today's examination. This may be on a technical basis, but represents a change from the 01/20/2017 examination. This is of indeterminant, if any, clinical significance. Correlation with clinical findings and serum bilirubin levels will be required. The intrahepatic ducts appear normal in caliber. 3. Linear shadows within the abdominal aorta are almost certainly related to artifact. The aorta was normal as seen by CT on 12/17/2016. Aortic dissection is considered extremely unlikely. If there is strong clinical concern for dissection a repeat CT scan should be considered. Electronically signed by: Giorgio Martinez M.D. 01/22/2017 12:35 AM Dictated Date/Time: 01/22/2017 12:23 AM
[2017-01-22] MEDS: SODIUM CHLORIDE 0.9% 1000ML 1,000 ML IV SCH ×3 (02:04→19:46)
[2017-01-22] MEDS: MoRPHine SULFATE 2 MG/ML CARP IV PRN ×4 (02:08→21:03)
[2017-01-22] MEDS: RANITIDINE IV 50 MG in DEXTROSE 5% 100ML 100 ML IV SCH ×3 (02:44→17:45)
[2017-01-22 06:43] LABS: HEMATOCRIT 35.7 % (37-47); MEAN CELL VOLUME 89.9 fL (80-100); MEAN CORPUSCULAR HEMOGLOBIN 30.7 pg (25-34); MEAN CORPUSCULAR HGB CONC 34.2 g/dl (32-36); MEAN PLATELET VOLUME 9.4 fL (7.4-10.4); PLATELET COUNT 241 K/uL (130-400); RED BLOOD COUNT 3.97 M/uL (4.2-5.4); WHITE BLOOD COUNT 7.95 K/uL (4.8-10.8)
[2017-01-22 07:06] LABS: BUN/CREATININE RATIO 8.5 (10-20); CALCIUM 8.5 mg/dl (8.5-10.1); CREATININE 0.62 mg/dl (0.60-1.20); POTASSIUM 3.9 mmol/L (3.5-5.1)
--- NOTE | 2017-01-22 07:17 | DIAGNOSTIC IMAGING REPORT ---
KUB CLINICAL HISTORY: Epigastric abdominal pain. FINDINGS: 2 AP supine abdominal radiographs are correlated with abdominal CT dated 12/17/2016. Naval piercings are noted. There is a nonobstructed abdominal bowel gas pattern noting mild to moderate colonic fecal retention. There are no abnormal abdominal calcifications. Tiny phleboliths are observed in the pelvis. The bony structures appear intact. Mild lumbar levocurvature is identified in the positional. IMPRESSION: Nonobstructed abdominal bowel gas pattern noting mild to moderate colonic fecal retention. Electronically signed by: Giorgio Martinez M.D. 01/22/2017 7:16 AM Dictated Date/Time: 01/22/2017 7:14 AM
[2017-01-22 07:41] VITALS: BP 104/68; PULSE 79; TEMP 36.8; O2SAT 97
[2017-01-22 08:00] VITALS: O2SAT 97
--- NOTE | 2017-01-22 10:57 | Gastrointestinal Consultation ---
Gastrointestinal Consultation Date of Consultation: Jan 22, 2017 Attending Physician: Dr. Vital Consulting Physician: Dr. Hernandez Reason for Consultation: epigastric pain, vomiting, diarrhea History of Present Illness Patient is a 21 year old female with ADHD who presented to the ER with complaints of several days of worsening epigastric pain as well as nausea and vomiting. She tells me tht this has been happening cyclically over the last 6+ months. She has had multiple Er visits and has been admitted int he past and idagnosed with UTI. She is tearful. She states that for the last 3 days she has not been able ot eat or drink anything. Naueasted. Some vomiting. No one else at home sick. She has a 1.5 yr old who is at home with her boyfriend. No fevers. She reports loose stools which have been a problems for a few months. No blood. She thinks her father has UC but is not sure. She also mentions IBS. Labs are significant for normal LFTS, lipase, CBC, and electrolytes. She had an abd US which is reported as a CBD of 1cm, though an US from 1 day prior reports a CBD of 0.5cm. LFTS have been consistently normal. Of note, last month she did have a lipase of 1000 in the setting of a normal abd CT. Denies use of NSAIDs. Not on PPI. Tearful when I asked about her diet and more tearful when I asked about stress, etc at home. Past Medical/Surgical History Medical Problems: (1) Acute gastroenteritis Status: Acute (2) Epigastric abdominal pain Status: Acute (3) Epigastric abdominal pain Status: Acute (4) Intractable pain Status: Acute (5) Nausea vomiting and diarrhea Status: Acute (6) Pancreatitis Status: Acute (7) Pleuritic pain Status: Acute (8) UTI (urinary tract infection) Status: Acute Past Medical History: as noted in HPI Past Surgical History: wisdom teeth Family History ?UC in father Social History Smoking Status: Never Smoker Drug Use: none Marital Status: in relationship Housing Status: lives with family Occupation Status: employed Allergies Coded Allergies: No Known Allergies (Unverified , 01/20/17) Current Medications Home Meds and Scripts Medications Dose Route/Sig Max Daily Dose Days Date Category Dose Instructions Prilosec (Omeprazole) 40 Mg Cap 40 Mg PO DAILY 01/21/17 Reported Zofran Odt (Ondansetron HCl) 4 Mg Tab 4 Mg SL Q6H PRN 01/21/17 Reported [place] 5MG/325MG (Acetaminophen/Hydrocodone Bitart) Tab 1-2 Tablet PO Q4H PRN 01/20/17 Rx For Initial Treatment Adderall 20MG (Amphetamine-Dextroamphetamine 20MG) 1 Tab Tab 20 Mg PO DAILY 12/17/16 Reported Lexapro (Escitalopram Oxalate) 20 Mg Tab 20 Mg PO DAILY 12/17/16 Reported Review of Systems 12 systems reviewed and negative except as noted Physical Exam Date Time Temp Pulse Resp B/P (MAP) Pulse Ox O2 Delivery O2 Flow Rate FiO2 01/22/17 08:00 97 Room Air 01/22/17 07:41 36.8 79 18 104/68 (80) 97 01/22/17 00:30 36.8 56 16 112/75 98 Room Air 01/21/17 23:50 36.7 70 18 145/88 97 01/21/17 22:36 36.8 75 18 123/78 97 Room Air 01/21/17 20:55 36.8 78 18 139/92 97 Room Air 01/21/17 18:50 36.8 92 18 137/77 97 Room Air General Appearance: WD/WN, + pertinent finding (tearful, little eye contact) Eyes: normal inspection ENT: normal ENT inspection, hearing grossly normal, pharynx normal Neck: supple, no adenopathy, no JVD Respiratory/Chest: chest non-tender, lungs clear, no accessory muscle use Cardiovascular: regular rate, rhythm, no murmur Abdomen: normal bowel sounds, soft, + tenderness (mild diffuse tenderness) Extremities: normal range of motion, non-tender, no calf tenderness Neurologic/Psych: cold strip roller II-XII nml as tested, no motor/sensory deficits, oriented x 3 Skin: normal color, no jaundice, warm/dry, no rash Laboratory Results Last 24 Hours Test 01/21/17 20:23 01/21/17 21:23 01/22/17 06:10 White Blood Count 11.23 K/uL 7.95 K/uL Red Blood Count 4.87 M/uL 3.97 M/uL Hemoglobin 15.2 g/dL 12.2 g/dL Hematocrit 44.0 % 35.7 % Mean Corpuscular Volume 90.3 fL 89.9 fL Mean Corpuscular Hemoglobin 31.2 pg 30.7 pg Mean Corpuscular Hemoglobin Concent 34.5 g/dl 34.2 g/dl Platelet Count 283 K/uL 241 K/uL Mean Platelet Volume 9.4 fL 9.4 fL Neutrophils (%) (Auto) 66.7 % Lymphocytes (%) (Auto) 24.8 % Monocytes (%) (Auto) 6.7 % Eosinophils (%) (Auto) 1.1 % Basophils (%) (Auto) 0.4 % Neutrophils # (Auto) 7.51 K/uL Lymphocytes # (Auto) 2.78 K/uL Monocytes # (Auto) 0.75 K/uL Eosinophils # (Auto) 0.12 K/uL Basophils # (Auto) 0.04 K/uL RDW Standard Deviation 47.6 fL 47.0 fL RDW Coefficient of Variation 14.4 % 14.2 % Immature Granulocyte % (Auto) 0.3 % Immature Granulocyte # (Auto) 0.03 K/uL Sodium Level 134 mmol/L 141 mmol/L Potassium Level 3.8 mmol/L 3.9 mmol/L Chloride Level 102 mmol/L 109 mmol/L Carbon Dioxide Level 29 mmol/L 27 mmol/L Anion Gap 4.0 mmol/L 5.0 mmol/L Blood Urea Nitrogen 10 mg/dl 5 mg/dl Creatinine 0.82 mg/dl 0.62 mg/dl Est Creatinine Clear Calc Drug Dose 107.1 ml/min 141.7 ml/min Estimated GFR () 116.9 147.3 Estimated GFR (Non- 100.9 127.1 BUN/Creatinine Ratio 11.7 8.5 Random Glucose 91 mg/dl 91 mg/dl Calcium Level 9.9 mg/dl 8.5 mg/dl Total Bilirubin 0.3 mg/dl Direct Bilirubin 0.1 mg/dl Aspartate Amino Transf (AST/SGOT) 15 U/L Alanine Aminotransferase (ALT/SGPT) 18 U/L Alkaline Phosphatase 64 U/L Total Protein 9.4 gm/dl Albumin 5.0 gm/dl Lipase 101 U/L Human Chorionic Gonadotropin, Qual NEG Urine Color YELLOW Urine Appearance CLEAR Urine pH 5.0 Urine Specific [place] 1.019 Urine Protein NEG Urine Glucose (UA) NEG Urine Ketones NEG Urine Occult Blood NEG Urine Nitrite NEG Urine Bilirubin NEG Urine Urobilinogen NEG Urine Leukocyte Esterase TRACE Urine WBC (Auto) 1-5 /hpf Urine RBC (Auto) 0-4 /hpf Urine Hyaline Casts (Auto) 0 /lpf Urine Epithelial Cells (Auto) >30 /lpf Urine Bacteria (Auto) NEG Urine Opiates Screen POS Urine Methadone, Qualitative NEG Urine Barbiturates NEG Urine Phencyclidine (PCP) Level NEG Ur Amphetamine/Methamphetamine NEG MDMA (Ecstasy) Screen NEG Urine Benzodiazepines Screen NEG Urine Cocaine Metabolite NEG Urine Marijuana (THC) NEG Impression Patient is a 21 year old female with long standing problems with "flare-ups" of nausea, vomiting, diarrhea and abd pain. Worse recently. No evidence of pancreatitis or biliary pathology based on studies. Would like to be sure she does not have peptic ulcer disease or IBD. She is agreeable to proceeding with an EGD and colonoscopy on Tuesday. Would attempt to limit the use of narcotics as possible. She also has a history of urinary tract and pelvic infections and will await the urine culture which is pending. Her symptoms are likely multi- factorial. Plan EGD and colonoscopy on TUESDAY. IVF hydration. PRN antiemetics. Liquid diet today. Prep for colonoscopy ordered to start tomorrow.
[2017-01-22] MEDS ORDERED: BISACODYL 5 MG TABEC PO ONE (11:00)
[2017-01-22 14:47] VITALS: BP 118/76; PULSE 71; TEMP 36.6; O2SAT 94
[2017-01-22] MEDS: AMPHETAMINE ASP/SULF/DEXTRAMPH 10 MG TAB PO SCH (15:03)
[2017-01-22] MEDS: ESCITALOPRAM OXALATE 20 MG TAB PO SCH (15:04)
[2017-01-22] MEDS: ONDANSETRON INJ 2 MG/ML 2 ML VIAL IV PRN ×2 (15:35→23:49)
--- NOTE | 2017-01-22 16:59 | Progress Note ---
Internal Med Progress Note Date of Service: Jan 22, 2017. Provider Documentation: SUBJECTIVE: says nausea and abdominal pain better now afebrile no sob no cough no chest pain OBJECTIVE: Vital Signs-as noted below Exam: General-alert and awake. Not in distress ENT-normal hearing Neck-no neck masses Lungs-cta b/l no wheezing present no crackles Heart-s1 and s2 heard regular rate and rhythm no murmurs Abdomen-soft bowel sounds present non tender no distension Extremities-no erythema no edema Neuro-alert and awake moves extremities Lab data as noted below. ASSESSMENT & PLAN: Epigastric Abdominal Pain: Unclear etiology DD:Peptic ulcer disease, Gastritis, Esophagitis, NSAIDs induced H/O GERD Recently had CT ABD/Vaginal/pelvic USD abdominal US cbd 1cm? kub ok on iv zantac GI on board and plans for egd and colonoscopy on Tuesday ADHD/ depression: Stable on home meds H/O PID and Ovarian Cyst: Follows with OBGYN DVT Px: SCDs, encourage to ambulate Code Status: Full Code DISPOSITION to be determined Vital Signs: Date Time Temp Pulse Resp B/P (MAP) Pulse Ox O2 Delivery O2 Flow Rate FiO2 01/22/17 16:00 Room Air 01/22/17 14:47 36.6 71 18 118/76 (90) 94 01/22/17 08:00 97 Room Air 01/22/17 07:41 36.8 79 18 104/68 (80) 97 01/22/17 00:30 36.8 56 16 112/75 98 Room Air 01/21/17 23:50 36.7 70 18 145/88 97 01/21/17 22:36 36.8 75 18 123/78 97 Room Air 01/21/17 20:55 36.8 78 18 139/92 97 Room Air 01/21/17 18:50 36.8 92 18 137/77 97 Room Air Lab Results: Results Past 24 Hours Test 01/21/17 20:23 01/21/17 21:23 01/22/17 06:10 01/22/17 14:30 Range/Units White Blood Count 11.23 7.95 4.8-10.8 K/uL Red Blood Count 4.87 3.97 4.2-5.4 M/uL Hemoglobin 15.2 12.2 12.0-16.0 g/dL Hematocrit 44.0 35.7 37-47 % Mean Corpuscular Volume 90.3 89.9 80-100 fL Mean Corpuscular Hemoglobin 31.2 30.7 25-34 pg Mean Corpuscular Hemoglobin Concent 34.5 34.2 32-36 g/dl Platelet Count 283 241 130-400 K/uL Mean Platelet Volume 9.4 9.4 7.4-10.4 fL Neutrophils (%) (Auto) 66.7 % Lymphocytes (%) (Auto) 24.8 % Monocytes (%) (Auto) 6.7 % Eosinophils (%) (Auto) 1.1 % Basophils (%) (Auto) 0.4 % Neutrophils # (Auto) 7.51 1.4-6.5 K/uL Lymphocytes # (Auto) 2.78 1.2-3.4 K/uL Monocytes # (Auto) 0.75 0.11-0.59 K/uL Eosinophils # (Auto) 0.12 0-0.5 K/uL Basophils # (Auto) 0.04 0-0.2 K/uL RDW Standard Deviation 47.6 47.0 36.4-46.3 fL RDW Coefficient of Variation 14.4 14.2 11.5-14.5 % Immature Granulocyte % (Auto) 0.3 % Immature Granulocyte # (Auto) 0.03 0.00-0.02 K/uL Sodium Level 134 141 136-145 mmol/L Potassium Level 3.8 3.9 3.5-5.1 mmol/L Chloride Level 102 109 98-107 mmol/L Carbon Dioxide Level 29 27 21-32 mmol/L Anion Gap 4.0 5.0 3-11 mmol/L Blood Urea Nitrogen 10 5 7-18 mg/dl Creatinine 0.82 0.62 0.60-1.20 mg/dl Est Creatinine Clear Calc Drug Dose 107.1 141.7 ml/min Estimated GFR () 116.9 147.3 Estimated GFR (Non- 100.9 127.1 BUN/Creatinine Ratio 11.7 8.5 10-20 Random Glucose 91 91 70-99 mg/dl Calcium Level 9.9 8.5 8.5-10.1 mg/dl Total Bilirubin 0.3 0.2-1 mg/dl Direct Bilirubin 0.1 0-0.2 mg/dl Aspartate Amino Transf (AST/SGOT) 15 15-37 U/L Alanine Aminotransferase (ALT/SGPT) 18 12-78 U/L Alkaline Phosphatase 64 45-117 U/L Total Protein 9.4 6.4-8.2 gm/dl Albumin 5.0 3.4-5.0 gm/dl Lipase 101 73-393 U/L Human Chorionic Gonadotropin, Qual NEG NEG Urine Color YELLOW Urine Appearance CLEAR CLEAR Urine pH 5.0 4.5-7.5 Urine Specific [place] 1.019 1.000-1.030 Urine Protein NEG NEG Urine Glucose (UA) NEG NEG Urine Ketones NEG NEG Urine Occult Blood NEG NEG Urine Nitrite NEG NEG Urine Bilirubin NEG NEG Urine Urobilinogen NEG NEG Urine Leukocyte Esterase TRACE NEG Urine WBC (Auto) 1-5 0-5 /hpf Urine RBC (Auto) 0-4 0-4 /hpf Urine Hyaline Casts (Auto) 0 0-5 /lpf Urine Epithelial Cells (Auto) >30 0-5 /lpf Urine Bacteria (Auto) NEG NEG Urine Opiates Screen POS NEG Urine Methadone, Qualitative NEG NEG Urine Barbiturates NEG NEG Urine Phencyclidine (PCP) Level NEG NEG Ur Amphetamine/Methamphetamine NEG NEG MDMA (Ecstasy) Screen NEG NEG Urine Benzodiazepines Screen NEG NEG Urine Cocaine Metabolite NEG NEG Urine Marijuana (THC) NEG NEG Stool Occult Blood NEGATIVE NEGATIVE Microbiology Results 01/22/17 C.difficile Toxin B Gene (PCR) - Final, Complete No C. difficile toxin B gene detected 01/21/17 Urine Culture - Preliminary, Resulted PIN-POINT GROWTH PRESENT, REINCUBATING.
[2017-01-22 23:13] VITALS: BP 105/61; PULSE 67; TEMP 36.5; O2SAT 97
[2017-01-23] MEDS: MoRPHine SULFATE 2 MG/ML CARP IV PRN ×2 (01:09→07:16)
[2017-01-23] MEDS: RANITIDINE IV 50 MG in DEXTROSE 5% 100ML 100 ML IV SCH ×3 (02:01→17:25)
[2017-01-23] MEDS: SODIUM CHLORIDE 0.9% 1000ML 1,000 ML IV SCH ×2 (05:43→15:43)
[2017-01-23 06:55] LABS: MEAN CORPUSCULAR HEMOGLOBIN 29.8 pg (25-34); MEAN CORPUSCULAR HGB CONC 33.1 g/dl (32-36); MEAN PLATELET VOLUME 9.2 fL (7.4-10.4); PLATELET COUNT 248 K/uL (130-400); RED BLOOD COUNT 3.89 M/uL (4.2-5.4); WHITE BLOOD COUNT 8.07 K/uL (4.8-10.8)
[2017-01-23 07:19] LABS: BUN/CREATININE RATIO 8.8 (10-20); CALCIUM 8.9 mg/dl (8.5-10.1); CREATININE 0.65 mg/dl (0.60-1.20)
[2017-01-23 07:20] VITALS: BP 111/68; PULSE 76; TEMP 37.1; O2SAT 95
[2017-01-23 08:00] VITALS: O2SAT 97
[2017-01-23] MEDS: AMPHETAMINE ASP/SULF/DEXTRAMPH 10 MG TAB PO SCH (08:32)
[2017-01-23] MEDS: ESCITALOPRAM OXALATE 20 MG TAB PO SCH (08:32)
[2017-01-23] MEDS: ACETAMINOPHEN 325 MG TAB PO PRN ×2 (12:46→19:46)
[2017-01-23 14:44] VITALS: BP 110/58; PULSE 75; TEMP 36.8; O2SAT 96
[2017-01-23 16:00] VITALS: O2SAT 96
[2017-01-23] MEDS ORDERED: POLYETHYLENE (MIRALAX) 17 GM PACK PO ONE ×2 (16:00→20:00)
--- NOTE | 2017-01-23 16:21 | Progress Note ---
Internal Med Progress Note Date of Service: Jan 23, 2017. Provider Documentation: SUBJECTIVE: resting comfortably slept fine able to tolerate liquid diet nausea and abdominal discomfort improved OBJECTIVE: Vital Signs-as noted below Exam: General-alert and awake. Not in distress ENT-normal hearing Neck-no neck masses Lungs-cta b/l no wheezing present no crackles Heart-s1 and s2 heard regular rate and rhythm no murmurs Abdomen-soft bowel sounds present non tender no distension Extremities-no erythema no edema Neuro-alert and awake moves extremities Lab data as noted below. ASSESSMENT & PLAN: Epigastric Abdominal Pain: Unclear etiology DD:Peptic ulcer disease, Gastritis, Esophagitis, NSAIDs induced H/O GERD Recently had CT ABD/Vaginal/pelvic USD abdominal US cbd 1cm? kub ok on iv zantac GI on board and plans for egd and colonoscopy on Tuesday improving ADHD/ depression: Stable on home meds H/O PID and Ovarian Cyst: Follows with OBGYN DVT Px: SCDs, encourage to ambulate Code Status: Full Code DISPOSITION await endoscopies Vital Signs: Date Time Temp Pulse Resp B/P (MAP) Pulse Ox O2 Delivery O2 Flow Rate FiO2 01/23/17 14:44 36.8 75 18 110/58 (75) 96 01/23/17 08:00 97 Room Air 01/23/17 07:20 37.1 76 18 111/68 (82) 95 01/23/17 00:00 Room Air 01/22/17 23:13 36.5 67 16 105/61 (76) 97 Room Air Lab Results: Results Past 24 Hours Test 01/23/17 06:32 Range/Units White Blood Count 8.07 4.8-10.8 K/uL Red Blood Count 3.89 4.2-5.4 M/uL Hemoglobin 11.6 12.0-16.0 g/dL Hematocrit 35.0 37-47 % Mean Corpuscular Volume 90.0 80-100 fL Mean Corpuscular Hemoglobin 29.8 25-34 pg Mean Corpuscular Hemoglobin Concent 33.1 32-36 g/dl RDW Standard Deviation 46.5 36.4-46.3 fL RDW Coefficient of Variation 14.2 11.5-14.5 % Platelet Count 248 130-400 K/uL Mean Platelet Volume 9.2 7.4-10.4 fL Sodium Level 139 136-145 mmol/L Potassium Level 4.0 3.5-5.1 mmol/L Chloride Level 107 98-107 mmol/L Carbon Dioxide Level 26 21-32 mmol/L Anion Gap 6.0 3-11 mmol/L Blood Urea Nitrogen 6 7-18 mg/dl Creatinine 0.65 0.60-1.20 mg/dl Est Creatinine Clear Calc Drug Dose 135.2 ml/min Estimated GFR () 145.0 Estimated GFR (Non- 125.1 BUN/Creatinine Ratio 8.8 10-20 Random Glucose 90 70-99 mg/dl Calcium Level 8.9 8.5-10.1 mg/dl
[2017-01-24] VITALS: BP 113/72; PULSE 66; TEMP 36.8; O2SAT 98
[2017-01-24] MEDS: SODIUM CHLORIDE 0.9% 1000ML 1,000 ML IV SCH ×2 (02:03→11:07)
[2017-01-24] MEDS: RANITIDINE IV 50 MG in DEXTROSE 5% 100ML 100 ML IV SCH ×2 (02:03→11:07)
[2017-01-24 05:44] LABS: COD UR NEGATIVE NG/ML (CUTOFF=50); HYDROCOD UR 1670 NG/ML (CUTOFF=50); HYDROMOR UR 130 NG/ML (CUTOFF=50); MORPHINE UR 2320 NG/ML (CUTOFF=50); NORHYDROCODONE CONF UR 3050 NG/ML (CUTOFF=50); OXYMORPH UR NEGATIVE NG/ML (CUTOFF=50)
[2017-01-24 07:14] VITALS: BP 96/54; PULSE 72; TEMP 36.8; O2SAT 98
[2017-01-24] MEDS: ESCITALOPRAM OXALATE 20 MG TAB PO SCH (07:47)
[2017-01-24] MEDS: AMPHETAMINE ASP/SULF/DEXTRAMPH 10 MG TAB PO SCH (07:47)
[2017-01-24] MEDS: ACETAMINOPHEN 325 MG TAB PO PRN (07:47)
[2017-01-24 09:07] VITALS: BP 96/54; PULSE 72; TEMP 36.8; O2SAT 98
[2017-01-24] MEDS ORDERED: MIDAZOLAM HCL 1 MG/ML 2ML VIAL ONE (09:12)
--- NOTE | 2017-01-24 09:52 | Endo History and Physical ---
History & Physical Date of Service: Jan 24, 2017. Chief Complaint: Referring Physician: History of Present Illness 21 yo inpt with n/v abdominal pain and diarrhea for inpatient endoscopies Past Surgical History Hx Cardiac Surgery: No Hx Abdominal Surgery: No Hx Post-Op Nausea and Vomiting: No Hx Cancer Surgery: No Hx Thoracic Surgery: No Hx Orthopedic: No Hx Urinary Tract Surgery: No Social History Smoking Status: Never Smoker Hx Substance Use: No Hx Alcohol Use: Yes (Wine, mixed drinks occasionally (occasional-less than weekly)) Allergies Coded Allergies: No Known Allergies (Unverified , 01/20/17) Current Medications Reported Home Medications Medications Dose Route/Sig Max Daily Dose Days Date Category Dose Instructions Prilosec (Omeprazole) 40 Mg Cap 40 Mg PO DAILY 01/21/17 Reported Zofran Odt (Ondansetron HCl) 4 Mg Tab 4 Mg SL Q6H PRN 01/21/17 Reported [place] 5MG/325MG (Acetaminophen/Hydrocodone Bitart) Tab 1-2 Tablet PO Q4H PRN 01/20/17 Rx For Initial Treatment Adderall 20MG (Amphetamine-Dextroamphetamine 20MG) 1 Tab Tab 20 Mg PO DAILY 12/17/16 Reported Lexapro (Escitalopram Oxalate) 20 Mg Tab 20 Mg PO DAILY 12/17/16 Reported Vital Signs Weight (Kilograms): 76.900 Height (Feet): 5 Height (Inches): 4.00 Date Time Temp Pulse Resp B/P (MAP) Pulse Ox O2 Delivery O2 Flow Rate FiO2 01/24/17 09:33 37.3 82 18 109/61 (77) 98 Room Air 01/24/17 09:07 36.8 72 20 96/54 98 Room Air 01/24/17 08:00 Room Air 01/24/17 07:14 36.8 72 20 96/54 (68) 98 Room Air 01/24/17 06:06 Room Air 01/24/17 00:00 36.8 66 20 113/72 (86) 98 Room Air 01/24/17 00:00 Room Air 01/23/17 16:00 96 Room Air 01/23/17 14:44 36.8 75 18 110/58 (75) 96 Physical Exam General Appearance: WD/WN, no apparent distress Respiratory/Chest: Auscultation: breath sounds normal Cardiovascular: Apical Impulse: not displaced Heart Auscultation: RRR Abdomen: Bowel Sounds: normal Inspection & Palpation: soft, non-distended Assessment and Plan Proceed with EGD/Colonoscopy as planned
[2017-01-24] MEDS ORDERED: ATROPINE SULFATE 0.1 MG/ML 5ML SYR IV PRN (10:00)
[2017-01-24] MEDS ORDERED: EpHEDrine SULFATE INJ 50 MG/ML AMP IV PRN (10:00)
[2017-01-24] MEDS ORDERED: LIDOCAINE HCL 2% 2 ML VIAL (20MG/ML) ONE (10:24)
[2017-01-24] MEDS ORDERED: PROPOFOL IV EMULSION 10 MG/ML 20 ML VIAL IV ONE (10:24)
--- NOTE | 2017-01-24 10:24 | GI REPORT ---
Procedure Date: 01/24/2017 9:58 AM Procedure: Upper GI endoscopy Indications: Generalized abdominal pain Medicines: General Anesthesia Complications: No immediate complications. Estimated blood loss: None. Estimated Blood Loss: Estimated blood loss: none. Procedure: Pre-Anesthesia Assessment: - Pre-Anesthesia Assessment: - Prior to the procedure, a History and Physical was performed, and patient medications, allergies and sensitivities were reviewed. The patient's tolerance of previous anesthesia was reviewed. Please see [employer] for complete details. - The risks and benefits of the procedure and the sedation options and risks were discussed with the patient. All questions were answered and informed consent was obtained. - Patient identification and proposed procedure were verified prior to the procedure by the physician and the nurse. The procedure was verified in the pre-procedure area in the procedure room. After obtaining informed consent, the endoscope was passed carefully and meticuously under direct vision and only advanced when the lumen was clearly identified, C02 insuflation was utilized throughout the entirity of the procedure. Throughout the procedure, the patient's blood pressure, pulse, and oxygen saturations were monitored continuously. After obtaining informed consent, the endoscope was passed under direct vision. Throughout the procedure, the patient's blood pressure, pulse, and oxygen saturations were monitored continuously. The scope was introduced through the mouth, and advanced to the second part of duodenum. The upper GI endoscopy was accomplished without difficulty. The patient tolerated the procedure well. Findings: The examined esophagus was normal. The entire examined stomach was normal. Biopsies were taken with a cold forceps for histology. The examined duodenum was normal. Biopsies were taken with a cold forceps for histology. Impression: - Normal esophagus. - Normal stomach. Biopsied. - Normal examined duodenum. Biopsied. Recommendation: - Await pathology results. - Return to referring physician. - Return patient to [facility] for possible discharge same day. - Perform a colonoscopy today. Burt Vega MD 01/24/2017 10:24:30 AM This report has been signed electronically. Note Initiated On: 01/24/2017 9:58 AM I attest to the content of the Intraoperative Record and orders documented therein, exceptions below
--- NOTE | 2017-01-24 10:27 | GI REPORT ---
Procedure Date: 01/24/2017 9:57 AM Procedure: Colonoscopy Indications: Generalized abdominal pain Medicines: General Anesthesia Complications: No immediate complications. Estimated blood loss: None. Estimated Blood Loss: Estimated blood loss: none. Procedure: Pre-Anesthesia Assessment: - Pre-Anesthesia Assessment: - Prior to the procedure, a History and Physical was performed, and patient medications, allergies and sensitivities were reviewed. The patient's tolerance of previous anesthesia was reviewed. Please see [employer] for complete details. - The risks and benefits of the procedure and the sedation options and risks were discussed with the patient. All questions were answered and informed consent was obtained. - Patient identification and proposed procedure were verified prior to the procedure by the physician and the nurse. The procedure was verified in the pre-procedure area in the procedure room. After obtaining informed consent, the endoscope was passed carefully and meticuously under direct vision and only advanced when the lumen was clearly identified, C02 insuflation was utilized throughout the entirity of the procedure. Throughout the procedure, the patient's blood pressure, pulse, and oxygen saturations were monitored continuously. After I obtained informed consent, the scope was passed under direct vision. Throughout the procedure, the patient's blood pressure, pulse, and oxygen saturations were monitored continuously. The scope was introduced through the anus and advanced to the terminal ileum, with identification of the appendiceal orifice and IC valve. The colonoscopy was performed without difficulty. The patient tolerated the procedure well. The quality of the bowel preparation was unsatisfactory. Findings: Extensive amounts of semi-solid solid stool was found in the entire colon, interfering with visualization. Biopsies were taken with a cold forceps for histology. The terminal ileum appeared normal. Impression: - Preparation of the colon was unsatisfactory. - Stool in the entire examined colon. Biopsied. - The examined portion of the ileum was normal. Recommendation: - Return patient to [facility] for possible discharge same day. - Treat with antispasmodic such as bentyl or levsin - Daily Fiber - Await pathology results - Hold opioids Burt Vega MD 01/24/2017 10:27:26 AM This report has been signed electronically. Note Initiated On: 01/24/2017 9:57 AM I attest to the content of the Intraoperative Record and orders documented therein, exceptions below
--- NOTE | 2017-01-24 10:50 | Anesthesiology Progress Note ---
Anesthesia Post Op Note Date & Time Jan 24, 2017 at 10:47 Vital Signs Pain Intensity: 0 Vital Signs Past 12 Hours Date Time Temp Pulse Resp B/P (MAP) Pulse Ox O2 Delivery O2 Flow Rate FiO2 01/24/17 10:41 72 18 104/68 (80) 97 Room Air 01/24/17 10:26 72 18 113/65 (81) 99 Room Air 01/24/17 09:33 37.3 82 18 109/61 (77) 98 Room Air 01/24/17 09:07 36.8 72 20 96/54 98 Room Air 01/24/17 08:00 Room Air 01/24/17 07:14 36.8 72 20 96/54 (68) 98 Room Air 01/24/17 06:06 Room Air 01/24/17 00:00 36.8 66 20 113/72 (86) 98 Room Air 01/24/17 00:00 Room Air Notes Mental Status: alert / awake / arousable, participated in evaluation Pt Amnestic to Procedure: Yes Nausea / Vomiting: adequately controlled Pain: adequately controlled Airway Patency, RR, SpO2: stable & adequate BP & HR: stable & adequate Hydration State: stable & adequate Anesthetic Complications: no major complications apparent
--- NOTE | 2017-01-24 12:15 | Discharge Instructions ---
Discharge Instructions Date of Service Jan 24, 2017. Admission Reason for Admission: Epigastric Abd Pain Discharge Discharge Diagnosis / Problem: abdominal pain Discharge Goals Goal(s): Decrease discomfort, Improve function Activity Recommendations Activity Limitations: resume your previous activity . Instructions / Follow-Up Instructions / Follow-Up FOLLOWUP WITH FAMILY DOCTOR Lamar Simpson ON Jan AT 10:45AM Current Hospital Diet Patient's current hospital diet: Regular Diet Discharge Diet Recommended Diet: Regular Diet Procedures Procedures Performed: EGD with biopsy, colonoscopy with biopsy Pending Studies Studies pending at discharge: yes List of pending studies: BIPOSY RESULTS- F/U WITH PCP Medical Emergencies . Who to Call and When: Medical Emergencies: If at any time you feel your situation is an emergency, please call 911 immediately. . Non-Emergent Contact Non-Emergency issues call your: Primary Care Provider . . "Provider Documentation" section prepared by Eduar Ralph. . VTE Core Measure Inpt VTE Proph given/why not?: SCD's
[2017-01-24 13:02] VITALS: BP 106/66; PULSE 76; TEMP 37.3; O2SAT 97
[2017-01-24] MEDS ORDERED: DICY10CA55 PO (13:14)
--- NOTE | 2017-01-24 15:54 | Progress Note ---
Internal Med Progress Note Date of Service: Jan 24, 2017. Provider Documentation: SUBJECTIVE: resting comfortably s/p egd and colonoscopy today and were unremarkable tolerating diet want to go home OBJECTIVE: Vital Signs-as noted below Exam: General-alert and awake. Not in distress ENT-normal hearing Neck-no neck masses Lungs-cta b/l no wheezing present no crackles Heart-s1 and s2 heard regular rate and rhythm no murmurs Abdomen-soft bowel sounds present non tender no distension Extremities-no erythema no edema Neuro-alert and awake moves extremities Lab data as noted below. ASSESSMENT & PLAN: Epigastric Abdominal Pain: Unclear etiology DD:Peptic ulcer disease, Gastritis, Esophagitis, NSAIDs induced H/O GERD Recently had CT ABD/Vaginal/pelvic USD abdominal US cbd 1cm? kub ok on iv zantac GI on board and plans for egd and colonoscopy s/p egd and colonoscopy today and were unremarkable asymptomatic and tolerating diet discharged home ADHD/ depression: Stable on home meds H/O PID and Ovarian Cyst: Follows with OBGYN discharged home Vital Signs: Date Time Temp Pulse Resp B/P (MAP) Pulse Ox O2 Delivery O2 Flow Rate FiO2 01/24/17 13:02 37.3 76 18 97 Room Air 01/24/17 10:57 76 18 106/66 (79) 97 Room Air 01/24/17 10:41 72 18 104/68 (80) 97 Room Air 01/24/17 10:26 72 18 113/65 (81) 99 Room Air 01/24/17 09:33 37.3 82 18 109/61 (77) 98 Room Air 01/24/17 09:07 36.8 72 20 96/54 98 Room Air 01/24/17 08:00 Room Air 01/24/17 07:14 36.8 72 20 96/54 (68) 98 Room Air 01/24/17 06:06 Room Air 01/24/17 00:00 36.8 66 20 113/72 (86) 98 Room Air 01/24/17 00:00 Room Air 01/23/17 16:00 96 Room Air
--- NOTE | 2017-01-24 17:18 | Discharge Summary ---
Discharge Summary Date of Service Jan 24, 2017. Discharge Summary Admission Date: Jan 21, 2017 at 23:28 Discharge Date: Jan 24, 2017 Discharge Disposition: Home Principal Diagnosis: EPIGASTRIC ABDOMINAL PAIN Secondary Diagnoses/Problems: ADHD, depression, PID, GERD and ovarian cyst Procedures: KUB: Nonobstructed abdominal bowel gas pattern noting mild to moderate colonic fecal retention. ABDOMINAL US: 1. No gallstones are seen. 2. The common bile duct measures 1.0 cm on today's examination. This may be on a technical basis, but represents a change from the 01/20/2017 examination. This is of indeterminant, if any, clinical significance. Correlation with clinical findings and serum bilirubin levels will be required. The intrahepatic ducts appear normal in caliber. 3. Linear shadows within the abdominal aorta are almost certainly related to artifact. The aorta was normal as seen by CT on 12/17/2016. Aortic dissection is considered extremely unlikely. If there is strong clinical concern for dissection a repeat CT scan should be considered. S/P EGD AND COLONOSCOPY Consultations: GI Medication Reconciliation New Medications: Dicyclomine Hcl (Bentyl) 10 Mg Cap 1 CAP PO TID PRN for ABDOMINAL SPASMS, #30 CAP Continued Medications: Amphetamine-Dextroamphetamine 20MG (Adderall 20MG) 1 Tab Tab 20 MG PO DAILY Escitalopram Oxalate (Lexapro) 20 Mg Tab 20 MG PO DAILY Hydrocodone/Acetaminophen 5MG/325MG ([place] 5MG/325MG) Tab 1-2 TABLET PO Q4H PRN for Pain, #10 TAB For Initial Treatment Omeprazole (Prilosec) 40 Mg Cap 40 MG PO DAILY, CAP Ondasetron Odt (Zofran Odt) 4 Mg Tab 4 MG SL Q6H PRN for Nausea, TAB Admission Information HPI (per Admitting provider): Patient is 21 yr female with PMH of ADHD, depression, PID, GERD and ovarian cyst presents with history of intractable epigastric pain associated with nausea , vomiting and intermittent diarrhea since many moths duration. Patient is tearful during the encounter. She states her symptoms have been going on since many months and she was recently discharged from [facility] after being treated for similar symptoms. She reports she had PID in March 2016 and was treated for it. Currently states epigastric pain is sharp, constant, burning like, radiated down her abdomen, worsens with food intake and se has been taking over the counter NSAIDs on a daily basis to control her pain. She denies any relieving factors. Also reports nausea, vomiting, decreased appetite and inability to keep the food. Reports weight loss of about 40 pounds in 1 yr which was not intentional. Denies having had EGD/Colonoscopy in the past. Denies any history of chest pain, SOB, cough, headache, fever, blood in stools, urinary symptoms, hematuria, dysuria. She states she follows with an OBGYN and denies any vaginal/ Urethral discharge. Physical Exam (per Admitting): General Appearance: WD/WN, + mild distress (Secondary to pain), + pertinent finding (Tearful during encounter) Head: normocephalic, atraumatic Eyes: normal inspection, PERRL, EOMI, sclerae normal ENT: normal ENT inspection, hearing grossly normal Neck: supple, no JVD, trachea midline Respiratory/Chest: chest non-tender, lungs clear, normal breath sounds, no respiratory distress, no accessory muscle use Cardiovascular: regular rate, rhythm, no edema, no murmur Abdomen/GI: normal bowel sounds, soft, + tenderness (Epigastric) Back: normal inspection Neurologic/Psych: animal sticker II-XII nml as tested, no motor/sensory deficits, alert , normal mood/affect, oriented x 3 Skin: normal color, warm/dry Hospital Course Epigastric Abdominal Pain: Unclear etiology DD:Peptic ulcer disease, Gastritis, Esophagitis, NSAIDs induced H/O GERD Recently had CT ABD/Vaginal/pelvic USD abdominal US cbd 1cm? kub ok on iv zantac GI on board and plans for egd and colonoscopy s/p egd and colonoscopy today and were unremarkable asymptomatic and tolerating diet discharged home ADHD/ depression: Stable on home meds H/O PID and Ovarian Cyst: Follows with OBGYN discharged home Total time spent on discharge = 35MINUTES This includes examination of the patient, discharge planning, medication reconciliation, and communication with other providers. Discharge Instructions Discharge Instructions Date of Service Jan 24, 2017. Admission Reason for Admission: Epigastric Abd Pain Discharge Discharge Diagnosis / Problem: abdominal pain Discharge Goals Goal(s): Decrease discomfort, Improve function Activity Recommendations Activity Limitations: resume your previous activity . Instructions / Follow-Up Instructions / Follow-Up FOLLOWUP WITH FAMILY DOCTOR Lamar Simpson ON Jan AT 10:45AM Current Hospital Diet Patient's current hospital diet: Regular Diet Discharge Diet Recommended Diet: Regular Diet Procedures Procedures Performed: EGD with biopsy, colonoscopy with biopsy Pending Studies Studies pending at discharge: yes List of pending studies: BIPOSY RESULTS- F/U WITH PCP Medical Emergencies . Who to Call and When: Medical Emergencies: If at any time you feel your situation is an emergency, please call 911 immediately. . Non-Emergent Contact Non-Emergency issues call your: Primary Care Provider . . "Provider Documentation" section prepared by Eduar Ralph. . VTE Core Measure Inpt VTE Proph given/why not?: SCD's
== END 2017-01-24 13:46 | disposition home or self-care (01) ==
LOC: C.EDB 18:41 → C.MS2W 23:28 → ENRESERV 23:37
PROVIDERS: ADMIT Internal Medicine; ATTEND Internal Medicine
DX: K29.50 Unspecified chronic gastritis without bleeding (principal); R19.7 Diarrhea, unspecified; F41.9 Anxiety disorder, unspecified; F32.9 Major depressive disorder, single episode, unspecified; F90.9 Attention-deficit hyperactivity disorder, unspecified type; N73.9 Female pelvic inflammatory disease, unspecified; Z98.818 Other dental procedure status; Z87.891 Personal history of nicotine dependence; Z82.49 Family history of ischemic heart disease and other diseases of the circulatory system; Z79.899 Other long term (current) drug therapy

== ENCOUNTER 2017-04-25 01:42 | Emergency (ER) | payer OTHER ==
[~2017-04-25] VITALS: Ht 162.6 cm; Wt 81.8 kg
[~2017-04-25 01:42] MED LIST changes: +DICY10CA55 PO
[2017-04-25 01:45] VITALS: TEMP 36.6; Ht 162.6 cm; Wt 81.8 kg
[2017-04-25] MEDS ORDERED: MoRPHine SULFATE 10 MG/ML CARP/VIAL IV STA (02:27)
[2017-04-25] MEDS ORDERED: ONDANSETRON INJ 2 MG/ML 2 ML VIAL IV STA ×2 (02:27→03:37)
[2017-04-25] MEDS ORDERED: SODIUM CHLORIDE 0.9% 1000ML 1,000 ML IV ONE (02:30)
[2017-04-25 02:39] LABS: BASO % 0.2 %; BASO ABS # 0.02 K/uL (0-0.2); EOS ABS # 0.13 K/uL (0-0.5); HEMATOCRIT 40.9 % (37-47); HEMOGLOBIN 14.2 g/dL (12.0-16.0); IG# 0.04 K/uL (0.00-0.02); LYMPH ABS # 1.13 K/uL (1.2-3.4); MEAN CORPUSCULAR HEMOGLOBIN 32.3 pg (25-34); MEAN CORPUSCULAR HGB CONC 34.7 g/dl (32-36); MEAN PLATELET VOLUME 9.4 fL (7.4-10.4); NEUT % 85.5 %; NEUT ABS # 10.69 K/uL (1.4-6.5); PLATELET COUNT 295 K/uL (130-400); RED CELL DISTRIBUTION WIDTH CV 13.3 % (11.5-14.5); RED CELL DISTRIBUTION WIDTH SD 45.4 fL (36.4-46.3); WHITE BLOOD COUNT 12.51 K/uL (4.8-10.8)
[2017-04-25 02:54] LABS: CALCIUM 8.8 mg/dl (8.5-10.1); CREATININE 0.88 mg/dl (0.60-1.20); POTASSIUM 3.7 mmol/L (3.5-5.1)
[2017-04-25 02:57] LABS: TOTAL PROTEIN 7.7 gm/dl (6.4-8.2)
[2017-04-25] MEDS ORDERED: OPTIRAY 320 IV PRN (03:45)
[2017-04-25 05:30] VITALS: BP 106/63
[2017-04-25 05:35] VITALS: PULSE 103; O2SAT 97
[2017-04-25] MEDS ORDERED: NORCO 5/325MG HOME PACK PO ONE (06:00)
[2017-04-25] MEDS ORDERED: ONDANSETRON HOME PACK 4MG OD TAB PO ONE (06:15)
--- NOTE | 2017-04-25 06:57 | DIAGNOSTIC IMAGING REPORT ---
ABD/PELVIS IV AND ORAL CONT CT DOSE: 397.28 mGy.cm HISTORY: Pain. Nausea. left side abd pain. N/V TECHNIQUE: Multiaxial CT images of the abdomen and pelvis were performed following the use of intravenous and oral contrast. A dose lowering technique was utilized adhering to the principles of ALARA. COMPARISON STUDY: 12/17/2016 FINDINGS: Lung bases are considered clear. There is uniform throughout. Kidneys negative for hydronephrosis. Spleen is uniform. 4.7 cm left ovarian cyst. Bowel pattern otherwise is nonobstructive. Suggestion of slight wall thickening of the region of the cecum most likely technical. Normal appendix. IMPRESSION: 4.7 cm left ovarian cyst. Otherwise negative study. The above report was generated using voice recognition software. It may contain grammatical, syntax or spelling errors. Electronically signed by: Hung Fisher M.D. 04/25/2017 6:56 AM Dictated Date/Time: 04/25/2017 6:54 AM
--- NOTE | 2017-04-26 01:33 | EMERGENCY ROOM VISIT NOTE ---
History First contact with patient: 01:54 Chief Complaint: ABDOMINAL PAIN Stated Complaint: PAIN NAUSEA Nursing Triage Summary: Pt reporting abominal pain in LUQ rated 10/10 starting several hours ago. Also reporting N/V. Hx of gastritis and "issues with my pancreas". Reports pain feels similar to last episode of "pancreas pain". History of Present Illness The patient is a 22 year old female who presents to the Emergency Room with complaints of left upper quadrant abdominal pain rated a 10/10 for the past several hours. The patient reports a history of gastritis and pancreatitis. She states her pain feels similar to her normal pain. She is nauseated with vomiting. No diarrhea. The patient has not taken anything [id number] for her symptoms. The patient has been admitted for similar symptoms in the past few months and has had normal upper endoscopy and colonoscopy. She has had multiple ultrasounds without obvious diagnosis of her symptoms. The patient has not had fever or chills. She does not have lower abdominal pain, dysuria, vaginal drainage, discharge, or bleeding. Review of Systems More than 10 systems were reviewed and otherwise negative with the exception of history of present illness. Past Medical/Surgical History Medical Problems: (1) Active labor at term (2) Tubo-ovarian abscess Family History No pertinent family history Social History Smoking Status: Never Smoker Drug Use: none Marital Status: in relationship Housing Status: lives with family Occupation Status: employed Current/Historical Medications Scheduled Amphetamine-Dextroamphetamine 20MG (Adderall 20MG), 20 MG PO DAILY Escitalopram Oxalate (Lexapro), 20 MG PO DAILY Omeprazole (Prilosec), 40 MG PO DAILY Physical Exam Vital Signs Date Time Temp Pulse Resp B/P (MAP) Pulse Ox O2 Delivery O2 Flow Rate FiO2 04/25/17 05:35 103 22 97 04/25/17 05:30 106/63 04/25/17 05:10 117/75 04/25/17 05:05 104 16 97 04/25/17 04:30 112 18 100 04/25/17 04:15 102/74 04/25/17 04:00 119/74 04/25/17 03:45 132/73 04/25/17 03:30 109 17 121/76 100 04/25/17 03:28 111 18 129/72 99 Room Air 04/25/17 02:51 115 16 124/74 98 Room Air 04/25/17 01:45 36.6 79 18 97/51 99 Room Air Physical Exam VITALS: Vitals are noted on the nurse's note and reviewed by myself. Vital signs stable. GENERAL: Well-developed, well-nourished, white female who is rolling side to side in the ER bed holding her abdomen. She is moaning in pain. NECK: Supple without nuchal rigidity. No lymphadenopathy. No thyromegaly. Cervical spine is nontender. HEART: Regular rate and rhythm without murmurs gallops or rubs. LUNGS: Clear to auscultation bilaterally without wheezes, rales or rhonchi. No retractions or accessory muscle use. ABDOMEN: Positive normal bowel sounds x 4. Soft with positive left upper tenderness on palpation. No rebound or guarding. No CVA tenderness. MUSCULOSKELETAL: No muscle atrophy, erythema, or edema noted. Full range of motion without joint tenderness in all extremities. Medical Decision & Procedures ER Provider Diagnostic Interpretation: ABD/PELVIS IV AND ORAL CONT CT DOSE: 397.28 mGy.cm HISTORY: Pain. Nausea. left side abd pain. N/V TECHNIQUE: Multiaxial CT images of the abdomen and pelvis were performed following the use of intravenous and oral contrast. A dose lowering technique was utilized adhering to the principles of ALARA. COMPARISON STUDY: 12/17/2016 FINDINGS: Lung bases are considered clear. There is uniform throughout. Kidneys negative for hydronephrosis. Spleen is uniform. 4.7 cm left ovarian cyst. Bowel pattern otherwise is nonobstructive. Suggestion of slight wall thickening of the region of the cecum most likely technical. Normal appendix. IMPRESSION: 4.7 cm left ovarian cyst. Otherwise negative study. Laboratory Results 04/25/17 02:00 Red Blood Count 4.40, Mean Corpuscular Volume 93.0, Mean Corpuscular Hemoglobin 32.3, Mean Corpuscular Hemoglobin Concent 34.7, Mean Platelet Volume 9.4, Neutrophils (%) (Auto) 85.5, Lymphocytes (%) (Auto) 9.0, Monocytes (%) (Auto) 4.0, Eosinophils (%) (Auto) 1.0, Basophils (%) (Auto) 0.2, Neutrophils # (Auto) 10.69, Lymphocytes # (Auto) 1.13, Monocytes # (Auto) 0.50, Eosinophils # (Auto) 0.13, Basophils # (Auto) 0.02 04/25/17 02:00 Test 04/25/17 02:00 04/25/17 04:35 White Blood Count 12.51 K/uL (4.8-10.8) Red Blood Count 4.40 M/uL (4.2-5.4) Hemoglobin 14.2 g/dL (12.0-16.0) Hematocrit 40.9 % (37-47) Mean Corpuscular Volume 93.0 fL (80-100) Mean Corpuscular Hemoglobin 32.3 pg (25-34) Mean Corpuscular Hemoglobin Concent 34.7 g/dl (32-36) Platelet Count 295 K/uL (130-400) Mean Platelet Volume 9.4 fL (7.4-10.4) Neutrophils (%) (Auto) 85.5 % Lymphocytes (%) (Auto) 9.0 % Monocytes (%) (Auto) 4.0 % Eosinophils (%) (Auto) 1.0 % Basophils (%) (Auto) 0.2 % Neutrophils # (Auto) 10.69 K/uL (1.4-6.5) Lymphocytes # (Auto) 1.13 K/uL (1.2-3.4) Monocytes # (Auto) 0.50 K/uL (0.11-0.59) Eosinophils # (Auto) 0.13 K/uL (0-0.5) Basophils # (Auto) 0.02 K/uL (0-0.2) RDW Standard Deviation 45.4 fL (36.4-46.3) RDW Coefficient of Variation 13.3 % (11.5-14.5) Immature Granulocyte % (Auto) 0.3 % Immature Granulocyte # (Auto) 0.04 K/uL (0.00-0.02) Anion Gap 9.0 mmol/L (3-11) Est Creatinine Clear Calc Drug Dose 102.0 ml/min Estimated GFR () 106.6 Estimated GFR (Non- 92.0 BUN/Creatinine Ratio 19.9 (10-20) Calcium Level 8.8 mg/dl (8.5-10.1) Total Bilirubin 0.3 mg/dl (0.2-1) Aspartate Amino Transf (AST/SGOT) 15 U/L (15-37) Alanine Aminotransferase (ALT/SGPT) 23 U/L (12-78) Alkaline Phosphatase 61 U/L (45-117) Total Protein 7.7 gm/dl (6.4-8.2) Albumin 4.0 gm/dl (3.4-5.0) Globulin 3.7 gm/dl (2.5-4.0) Albumin/Globulin Ratio 1.1 (0.9-2) Amylase Level 46 U/L (25-115) Lipase 128 U/L (73-393) Urine Color YELLOW Urine Appearance CLEAR (CLEAR) Urine pH 5.0 (4.5-7.5) Urine Specific [place] 1.020 (1.000-1.030) Urine Protein NEG (NEG) Urine Glucose (UA) NEG (NEG) Urine Ketones NEG (NEG) Urine Occult Blood 1+ (NEG) Urine Nitrite NEG (NEG) Urine Bilirubin NEG (NEG) Urine Urobilinogen NEG (NEG) Urine Leukocyte Esterase TRACE (NEG) Urine WBC (Auto) 1-5 /hpf (0-5) Urine RBC (Auto) 0-4 /hpf (0-4) Urine Hyaline Casts (Auto) 1-5 /lpf (0-5) Urine Epithelial Cells (Auto) >30 /lpf (0-5) Urine Bacteria (Auto) NEG (NEG) Urine Test NEG (NEG) Urine Opiates Screen POS (NEG) Urine Methadone, Qualitative NEG (NEG) Urine Barbiturates NEG (NEG) Urine Phencyclidine (PCP) Level NEG (NEG) Ur Amphetamine/Methamphetamine NEG (NEG) MDMA (Ecstasy) Screen NEG (NEG) Urine Benzodiazepines Screen NEG (NEG) Urine Cocaine Metabolite NEG (NEG) Urine Marijuana (THC) NEG (NEG) Medications Administered Medications (Trade) Dose Ordered Sig/Nelson Route Start Time Stop Time Status Last Admin Dose Admin Sodium Chloride 1,000 ml @ 999 mls/hr Q1H1M ONCE IV 04/25/17 02:30 04/25/17 03:30 DC 04/25/17 02:45 999 MLS/HR Morphine Sulfate (MoRPHine SULFATE INJ) 8 mg NOW STAT IV 04/25/17 02:27 04/25/17 02:30 DC 04/25/17 02:44 8 MG Ondansetron HCl (Zofran Inj) 4 mg NOW STAT IV 04/25/17 02:27 04/25/17 02:30 DC 04/25/17 02:44 4 MG Ondansetron HCl (Zofran Inj) 4 mg NOW STAT IV 04/25/17 03:37 04/25/17 03:38 DC 04/25/17 03:48 4 MG Acetaminophen/ Hydrocodone Bitart ([place] 5/325mg Home Pack) 1 homepack UD ONCE PO 04/25/17 06:00 04/25/17 06:01 DC 04/25/17 06:01 1 HOMEPACK Ondansetron HCl (ZOFRAN ODT 4MG Home Pack) 1 homepack UD ONCE PO 04/25/17 06:15 04/25/17 06:16 DC 04/25/17 06:08 1 HOMEPACK ED Course Physical exam and history were performed. Nursing notes, EMR, and Medication List were personally reviewed. Patient appears to have left-sided upper abdominal pain for the past several hours. On examination the patient is uncomfortable and with palpable tenderness in the left upper quadrant. She does not have lower abdominal tenderness or evidence of peritonitis. IV access was established and labs were obtained. The patient was hydrated and medicated as above. CT scan with IV and oral contrast was performed. The patient's blood work is as above and was reviewed. She does not have a significantly elevated white blood cell count, gross anemia, bandemia, or significant electrolyte imbalance. Lipase, transaminases, and amylase is nondiagnostic. CT scan was performed and does reveal a left ovarian cyst, however there is no other findings to explain the patient's discomfort. On repeat physical examination the patient had significant improvement of her pain and was resting quite comfortably. She continues with a soft nonsurgical abdomen. I discussed options of care with the patient, and feel that she is stable for discharge home. She will be provided a home pack of [place] for her symptoms. The patient needs to continue to follow with her primary care physician, web producer, and PRINTER MAINTAINER. She was otherwise invited back to the ER with any new, worsening, or concerning symptoms. The chart was completed utilizing [employer] Voice Recognition Software. Grammatical errors, random word insertions, pronoun errors, and incomplete sentences are an occasional consequence of this system due to software limitations, ambient noise, and hardware issues. Any formal questions or concerns about the content, text, or information contained within the body of this dictation should be directly addressed to the provider for clarification. . Medical Decision Differential diagnosis: Etiologies such as appendicitis, diverticulitis, PUD, biliary pathology, UTI, pancreatitis, obstruction, mesenteric ischemia, aortic pathology, infections, inflammatory bowel disease, renal colic, as well as others were entertained. Impression Primary Impression: Upper abdominal pain Additional Impression: Ovarian cyst Departure Information Dispostion Home / Self-Care Condition GOOD Forms HOME CARE DOCUMENTATION FORM, IMPORTANT VISIT INFORMATION Patient Instructions [facility] Additional Instructions You were seen and evaluated today on an emergency basis only. This is not a substitute for, or an effort to provide, complete comprehensive medical care. It is not possible to recognize and treat all injuries or illnesses in a single emergency department visit. For this reason it is recommended that you followup with your primary care physician and PRINTER MAINTAINER this week for ongoing care and evaluation. Drink plenty fluids and remain well hydrated. [place] (hydrocodone/acetaminophen) 5/325 mg (homepack) every 6 hours as needed for worsening breakthrough pain. Do not drink or drive on [place]. This medication will likely make you tired. Do not take [place] and Tylenol at the same time as both contain acetaminophen. [place] may cause constipation. You may wish to take an [id number] stool softener like Colace if this occurs. You are welcome to return to the emergency department anytime with new, worsening, or concerning symptoms. Problem Qualifiers
== END 2017-04-25 06:00 | disposition home or self-care (01) ==
LOC: C.EDB 01:43 → C.EDA 06:00
DX: R10.12 Left upper quadrant pain (principal); N83.202 Unspecified ovarian cyst, left side; Z87.19 Personal history of other diseases of the digestive system; Z79.899 Other long term (current) drug therapy

== ENCOUNTER 2017-08-17 09:12 | Emergency (ER) | payer OTHER ==
[~2017-08-17] VITALS: Ht 165.1 cm; Wt 85.0 kg
[~2017-08-17 09:12] MED LIST changes: -DICY10CA55 PO; -HYDR-5688 PO; -ONDA4TAB10 SL
[2017-08-17 09:15] VITALS: Ht 165.1 cm; Wt 85.0 kg
[2017-08-17] MEDS ORDERED: ONDANSETRON INJ 2 MG/ML 2 ML VIAL IV STA (09:29)
[2017-08-17] MEDS ORDERED: KETOROLAC TROMETHAMINE 30 MG/ML VIAL IV STA (09:29)
[2017-08-17] MEDS ORDERED: SODIUM CHLORIDE 0.9% 1000ML 1,000 ML IV STA ×2 (09:29→12:04)
[2017-08-17 10:00] LABS: BASO % 0.1 %; BASO ABS # 0.02 K/uL (0-0.2); EOS % 0.1 %; EOS ABS # 0.01 K/uL (0-0.5); HEMATOCRIT 36.9 % (37-47); HEMOGLOBIN 12.8 g/dL (12.0-16.0); IG# 0.05 K/uL (0.00-0.02); LYMPH % 8.6 %; LYMPH ABS # 1.38 K/uL (1.2-3.4); MEAN CORPUSCULAR HEMOGLOBIN 30.2 pg (25-34); MEAN CORPUSCULAR HGB CONC 34.7 g/dl (32-36); MEAN PLATELET VOLUME 9.1 fL (7.4-10.4); MONO % 1.9 %; PLATELET COUNT 272 K/uL (130-400); RED CELL DISTRIBUTION WIDTH CV 13.6 % (11.5-14.5); RED CELL DISTRIBUTION WIDTH SD 43.6 fL (36.4-46.3); WHITE BLOOD COUNT 16.06 K/uL (4.8-10.8)
[2017-08-17 10:19] LABS: ALT/SGPT 18 U/L (12-78); AST/SGOT 12 U/L (15-37); BLOOD UREA NITROGEN 13 mg/dl (7-18); CALCIUM 8.8 mg/dl (8.5-10.1); CARBON DIOXIDE 26 mmol/L (21-32); CREATININE 0.77 mg/dl (0.60-1.20); GLUCOSE 122 mg/dl (70-99); LIPASE 65 U/L (73-393); POTASSIUM 3.9 mmol/L (3.5-5.1); SODIUM 134 mmol/L (136-145)
[2017-08-17 10:22] LABS: ALKALINE PHOSPHATASE 62 U/L (45-117)
--- NOTE | 2017-08-17 11:42 | DIAGNOSTIC IMAGING REPORT ---
ABDOMINAL ULTRASOUND, RIGHT UPPER QUADRANT HISTORY: epigastric abdominal pain . COMPARISON: Abdomen and pelvis CT 04/25/2017. FINDINGS: Pancreas: The visualized pancreas demonstrates a normal echotexture. Liver: No hepatic masses. The liver is mildly enlarged measuring 19 cm in length. Gallbladder: No gallbladder wall thickening. No gallstones. CBD: 5 mm. Right kidney: Duplicated right renal collecting system. No hydronephrosis. IMPRESSION: 1. Normal gallbladder. No gallstones. 2. Mild hepatomegaly, unchanged. Electronically signed by: Jet Richey M.D. 08/17/2017 11:40 AM Dictated Date/Time: 08/17/2017 11:39 AM
[2017-08-17] MEDS ORDERED: OPTIRAY 320 IV PRN (12:15)
--- NOTE | 2017-08-17 12:55 | DIAGNOSTIC IMAGING REPORT ---
ABDOMEN AND PELVIS CT WITH IV CONTRAST CT DOSE: 666.88 mGycm HISTORY: Acute severe epigastric abdominal pain abd pain epigastric and hypotensive TECHNIQUE: Multiaxial CT images of the abdomen and pelvis were performed following the use of intravenous contrast. A dose lowering technique was utilized adhering to the principles of ALARA. COMPARISON STUDY: CT abdomen pelvis 04/25/2017, right upper quadrant ultrasound of same day FINDINGS: Mild dependent subsegmental atelectasis of the lung bases. There is no pneumatosis or pneumoperitoneum. Imaged inferior cardiac chambers are unremarkable. Mildly contracted gallbladder. The liver appears mildly prominent in size and is otherwise unremarkable without focal mass or intrahepatic biliary ductal dilation. The spleen, pancreas and adrenal glands are within normal limits. Kidneys, ureters and bladder are unremarkable. Follicular changes of the ovaries. Low attenuating foci within the region of the lower uterine segment and cervix measuring up to 7 mm suggest nabothian cysts. Mild free pelvic fluid. There is mild prominence of the adnexal vasculature bilaterally. Collateral veins measure up to 9 mm. Aorta is normal in course and caliber without aneurysm. IVC is unremarkable. No bulky adenopathy. There is no bowel obstruction or focal bowel wall thickening. The appendix measures the upper limits of normal at 6 mm which is unchanged and demonstrates no evidence of acute inflammation. Soft tissues are unremarkable. Bones appear intact. Mild levoscoliosis of the thoracolumbar junction. IMPRESSION: 1. No acute intra-abdominal or intrapelvic abnormality identified. No evidence of acute appendicitis. 2. Prominent vasculature about the bilateral adnexal distributions with prominence of the gonadal veins, possibly reflecting pelvic venous insufficiency within the appropriate clinical setting. Electronically signed by: Markos Barcenas M.D. 08/17/2017 12:53 PM Dictated Date/Time: 08/17/2017 12:47 PM
[2017-08-17 13:35] VITALS: BP 101/50; PULSE 72; TEMP 36.6; O2SAT 98
--- NOTE | 2017-08-17 13:58 | EMERGENCY ROOM VISIT NOTE ---
History Report prepared by Zac: Hernesto Davies Under the Supervision of: Dr. Juanjose Cheng D.O. First contact with patient: 09:21 Chief Complaint: ABDOMINAL PAIN Stated Complaint: PANCREAS NAUSEA AB PAIN Nursing Triage Summary: pancreatitis History of Present Illness The patient is a 22 year old female who presents to the Emergency Room with complaints of constant epigastric and LUQ abdominal pain beginning 6.5 hours ago. She has a history of pancreatitis (x2), and gastritis. She believes her symptoms are likely related to her pancreas. The patient's symptoms are worsened with drinking water. She also complains of vomiting (x7 episodes). Nothing improves her pain. The patient's last normal bowel movement was two hours ago. LNMP was three weeks ago, and she denies chance of . She drinks alcohol occasionally, but has not had any for several months. Pt denies headache, change in vision, fevers, chest pain, shortness of breath, diarrhea, pain with urination, and melena. No other exacerbating or remitting factors. Source of History: patient Onset: 6.5 hours ago Position: abdomen (epigastric, LUQ) Timing: constant Modifying Factors (Worsening): other (drinking water) Modifying Factors (Relieving): other (nothing) Associated Symptoms: + vomiting, No fevers, No headache, No chest pain, No SOB, No melena, No diarrhea, No urinary symptoms Review of Systems See HPI for pertinent positives & negatives. A total of 10 systems reviewed and were otherwise negative. Past Medical & Surgical Medical Problems: (1) Active labor at term (2) Acute pancreatitis (3) Epigastric abdominal pain (4) Ovarian cyst (5) Tubo-ovarian abscess (6) Upper abdominal pain Family History No pertinent family history stated. Social History Smoking Status: Never Smoker Drug Use: none Marital Status: in relationship Housing Status: lives with family Occupation Status: employed Current/Historical Medications Scheduled Amphetamine-Dextroamphetamine 20MG (Adderall 20MG), 20 MG PO DAILY Escitalopram Oxalate (Lexapro), 20 MG PO DAILY Omeprazole (Prilosec), 40 MG PO DAILY Allergies Coded Allergies: No Known Allergies (Unverified , 08/17/17) Physical Exam Vital Signs Date Time Temp Pulse Resp B/P (MAP) Pulse Ox O2 Delivery O2 Flow Rate FiO2 08/17/17 13:35 36.6 72 18 101/50 98 5/9/18 12:47 76 20 103/50 97 08/17/17 12:06 88/46 08/17/17 12:05 77/45 08/17/17 11:55 70 18 87/52 95 08/17/17 09:15 36.6 82 20 122/78 97 Room Air Physical Exam GENERAL: Sitting up in bed, disheveled, no distress, non-toxic EYE EXAM: normal conjunctiva. OROPHARYNX: no exudate, no erythema, lips, buccal mucosa, and tongue normal and mucous membranes are moist NECK: supple, no nuchal rigidity, no adenopathy, non-tender LUNGS: Clear to auscultation. Normal chest wall mechanics HEART: no murmurs, S1 normal and S2 normal ABDOMEN: abdomen soft, normo-active bowel sounds, no masses, no rebound or guarding. Tenderness to palpation of the epigastric region BACK: Back is symmetrical on inspection and there is no deformity, no midline tenderness, no CVA tenderness. SKIN: no rashes and no bruising UPPER EXTREMITIES: upper extremities are grossly normal. LOWER EXTREMITIES: No pitting edema. NEURO EXAM: Normal sensorium, cranial nerves II-XII grossly intact, normal speech, no gross weakness of arms, no gross weakness of legs. Medical Decision & Procedures ER Provider Diagnostic Interpretation: Radiology results as stated below per my review and the radiologist's interpretation: ABDOMINAL ULTRASOUND, RIGHT UPPER QUADRANT FINDINGS: Pancreas: The visualized pancreas demonstrates a normal echotexture. Liver: No hepatic masses. The liver is mildly enlarged measuring 19 cm in length. Gallbladder: No gallbladder wall thickening. No gallstones. CBD: 5 mm. Right kidney: Duplicated right renal collecting system. No hydronephrosis. IMPRESSION: 1. Normal gallbladder. No gallstones. 2. Mild hepatomegaly, unchanged. Electronically signed by: Jet Richey M.D. 08/17/2017 11:40 AM ABDOMEN AND PELVIS CT WITH IV CONTRAST FINDINGS: Mild dependent subsegmental atelectasis of the lung bases. There is no pneumatosis or pneumoperitoneum. Imaged inferior cardiac chambers are unremarkable. Mildly contracted gallbladder. The liver appears mildly prominent in size and is otherwise unremarkable without focal mass or intrahepatic biliary ductal dilation. The spleen, pancreas and adrenal glands are within normal limits. Kidneys, ureters and bladder are unremarkable. Follicular changes of the ovaries. Low attenuating foci within the region of the lower uterine segment and cervix measuring up to 7 mm suggest nabothian cysts. Mild free pelvic fluid. There is mild prominence of the adnexal vasculature bilaterally. Collateral veins measure up to 9 mm. Aorta is normal in course and caliber without aneurysm. IVC is unremarkable. No bulky adenopathy. There is no bowel obstruction or focal bowel wall thickening. The appendix measures the upper limits of normal at 6 mm which is unchanged and demonstrates no evidence of acute inflammation. Soft tissues are unremarkable. Bones appear intact. Mild levoscoliosis of the thoracolumbar junction. IMPRESSION: 1. No acute intra-abdominal or intrapelvic abnormality identified. No evidence of acute appendicitis. 2. Prominent vasculature about the bilateral adnexal distributions with prominence of the gonadal veins, possibly reflecting pelvic venous insufficiency within the appropriate clinical setting. Electronically signed by: Markos Barcenas M.D. 08/17/2017 12:53 PM Laboratory Results 08/17/17 09:45 Red Blood Count 4.24, Mean Corpuscular Volume 87.0, Mean Corpuscular Hemoglobin 30.2, Mean Corpuscular Hemoglobin Concent 34.7, Mean Platelet Volume 9.1, Neutrophils (%) (Auto) 89.0, Lymphocytes (%) (Auto) 8.6, Monocytes (%) (Auto) 1.9, Eosinophils (%) (Auto) 0.1, Basophils (%) (Auto) 0.1, Neutrophils # (Auto) 14.30, Lymphocytes # (Auto) 1.38, Monocytes # (Auto) 0.30, Eosinophils # (Auto) 0.01, Basophils # (Auto) 0.02 08/17/17 09:45 Test 08/17/17 09:45 08/17/17 11:47 White Blood Count 16.06 K/uL (4.8-10.8) Red Blood Count 4.24 M/uL (4.2-5.4) Hemoglobin 12.8 g/dL (12.0-16.0) Hematocrit 36.9 % (37-47) Mean Corpuscular Volume 87.0 fL (80-100) Mean Corpuscular Hemoglobin 30.2 pg (25-34) Mean Corpuscular Hemoglobin Concent 34.7 g/dl (32-36) Platelet Count 272 K/uL (130-400) Mean Platelet Volume 9.1 fL (7.4-10.4) Neutrophils (%) (Auto) 89.0 % Lymphocytes (%) (Auto) 8.6 % Monocytes (%) (Auto) 1.9 % Eosinophils (%) (Auto) 0.1 % Basophils (%) (Auto) 0.1 % Neutrophils # (Auto) 14.30 K/uL (1.4-6.5) Lymphocytes # (Auto) 1.38 K/uL (1.2-3.4) Monocytes # (Auto) 0.30 K/uL (0.11-0.59) Eosinophils # (Auto) 0.01 K/uL (0-0.5) Basophils # (Auto) 0.02 K/uL (0-0.2) RDW Standard Deviation 43.6 fL (36.4-46.3) RDW Coefficient of Variation 13.6 % (11.5-14.5) Immature Granulocyte % (Auto) 0.3 % Immature Granulocyte # (Auto) 0.05 K/uL (0.00-0.02) Anion Gap 5.0 mmol/L (3-11) Est Creatinine Clear Calc Drug Dose 121.3 ml/min Estimated GFR () 125.3 Estimated GFR (Non- 108.1 BUN/Creatinine Ratio 16.9 (10-20) Calcium Level 8.8 mg/dl (8.5-10.1) Total Bilirubin 0.3 mg/dl (0.2-1) Direct Bilirubin < 0.1 mg/dl (0-0.2) Aspartate Amino Transf (AST/SGOT) 12 U/L (15-37) Alanine Aminotransferase (ALT/SGPT) 18 U/L (12-78) Alkaline Phosphatase 62 U/L (45-117) Total Protein 8.0 gm/dl (6.4-8.2) Albumin 4.0 gm/dl (3.4-5.0) Lipase 65 U/L (73-393) Urine Color YELLOW Urine Appearance CLEAR (CLEAR) Urine pH 7.5 (4.5-7.5) Urine Specific [place] 1.009 (1.000-1.030) Urine Protein NEG (NEG) Urine Glucose (UA) NEG (NEG) Urine Ketones NEG (NEG) Urine Occult Blood NEG (NEG) Urine Nitrite NEG (NEG) Urine Bilirubin NEG (NEG) Urine Urobilinogen NEG (NEG) Urine Leukocyte Esterase NEG (NEG) Urine WBC (Auto) 1-5 /hpf (0-5) Urine RBC (Auto) 0-4 /hpf (0-4) Urine Hyaline Casts (Auto) 0 /lpf (0-5) Urine Epithelial Cells (Auto) >30 /lpf (0-5) Urine Bacteria (Auto) NEG (NEG) Urine Test NEG (NEG) Laboratory results per my review. Medications Administered Medications (Trade) Dose Ordered Sig/Nelson Route Start Time Stop Time Status Last Admin Dose Admin Sodium Chloride 1,000 ml @ 999 mls/hr Q1H1M STAT IV 08/17/17 09:29 08/17/17 10:29 DC 08/17/17 09:51 999 MLS/HR Ondansetron HCl (Zofran Inj) 4 mg NOW STAT IV 08/17/17 09:29 08/17/17 09:32 DC 08/17/17 09:52 4 MG Ketorolac Tromethamine (Toradol Inj) 30 mg NOW STAT IV 08/17/17 09:29 08/17/17 09:32 DC 08/17/17 09:51 30 MG Sodium Chloride 1,000 ml @ 999 mls/hr Q1H1M STAT IV 08/17/17 12:04 08/17/17 13:04 DC 08/17/17 12:04 999 MLS/HR ED Course ED COURSE: Vital signs were reviewed and appeared normal. The patients medical record was reviewed The above diagnostic studies were performed and reviewed. ED treatments and interventions as stated above. 0924: The patient was evaluated in room B10. A complete history and physical examination was performed. 0929: Ordered Sodium Chloride 1000 ml @ 999 mls/hr IV, Zofran Inj 4 mg IV, Toradol Inj 30 mg IV. 1204: Ordered Sodium Chloride 1000 ml @ 999 mls/hr IV. 1312: Upon reevaluation, the patient is resting comfortably. I discussed my findings with the patient and she understands and agrees with the treatment plan. Based on the patients age, coexisting illnesses, exam and lab findings the decision to treat as an outpatient was made. The patient remained stable while under my care. The patient appeared well at the time of discharge. Medical Decision Differential diagnoses includes but is not limited to gastritis, peptic ulcer disease, GERD, gallbladder disease, pancreatitis, small bowel obstruction, acute coronary syndrome, pericarditis, ischemic bowel, irritable bowel disease, irritable bowel syndrome, appendicitis, diverticulitis, malignancy, hernia, urinary tract infection, torsion, /ectopic , perforation, trauma, infectious. Patient is a 22-year-old female with a past medical history of gastritis and pancreatitis that presents to ER for epigastric abdominal pain. Labs are remarkable for a mild leukocytosis of 16,000. BMP along with LFTs, bilirubin and lipase was normal. UA was negative. was negative. Ultrasound was performed and was unremarkable in the epigastric region. CT abdomen pelvis was performed shortly after as she was slightly hypertensive with systolics in the 90s. CT abdomen pelvis was completely benign. Patient was updated at bedside. Repeat blood pressure showed 103. She notes symptoms felt significant better following the GI cocktail. She was given IV Toradol. She was given IV fluids. She was updated at bedside and discharged to follow-up with PCP as an outpatient. No vomiting while in the ER. She did feel significantly better. Discussed with Pt concerning signs and symptoms to watch out for. Pt was instructed to follow up with their PCP and discussed with the patient their option to return to the ED at anytime for persistent or worsening symptoms. The appropriate anticipatory guidance and out-patient management, including indications for return to the emergency department, were explained at length to the patient and understood. Medication Reconcilliation Current Medication List: was personally reviewed by me Blood Pressure Screening Patient's blood pressure: Normal blood pressure Blood pressure disposition: Did not require urgent referral Impression Primary Impression: Abdominal pain Additional Impression: Leukocytosis Scribe Attestation The scribe's documentation has been prepared under my direction and personally reviewed by me in its entirety. I confirm that the note above accurately reflects all work, treatment, procedures, and medical decision making performed by me. Departure Information Dispostion Home / Self-Care Referrals No Doctor, Assigned (PCP) Forms HOME CARE DOCUMENTATION FORM, IMPORTANT VISIT INFORMATION Patient Instructions Abdominal Pain - [facility], [facility] Additional Instructions Please follow up with your primary care doctor with in the next 24 hours. Any worsening of your symptoms, please return to the ED immediately. This includes any fevers greater than 100.4, worsening pain, chest pain, shortness breath, persistent nausea, vomiting, unable to eat or drink, or any other concerning signs or symptoms from your standpoint. Please take Tylenol or Motrin as needed for pain. Problem Qualifiers Primary Impression: Abdominal pain Abdominal location: epigastric Qualified Codes: R10.13 - Epigastric pain Additional Impression: Leukocytosis Leukocytosis type: unspecified Qualified Codes: D72.829 - Elevated white blood cell count, unspecified
== END 2017-08-17 13:36 | disposition home or self-care (01) ==
LOC: C.EDB 09:14
DX: R10.13 Epigastric pain (principal); D72.829 Elevated white blood cell count, unspecified; Z79.899 Other long term (current) drug therapy

== ENCOUNTER 2017-11-08 02:43 | Emergency (ER) | payer OTHER ==
[~2017-11-08] VITALS: Ht 165.1 cm; Wt 86.1 kg
[2017-11-08 02:46] VITALS: TEMP 36.8; Ht 165.1 cm; Wt 86.1 kg
[2017-11-08] MEDS ORDERED: KETOROLAC TROMETHAMINE 30 MG/ML VIAL IV STA (02:56)
[2017-11-08] MEDS ORDERED: ALUMINUM/MAGNESIUM SUSP 30 ML UDC PO STA (02:56)
[2017-11-08] MEDS ORDERED: LIDOCAINE HCL 2% VISC SOLN 20 ML UDC PO STA (02:56)
[2017-11-08] MEDS ORDERED: BENZOCAINE 20% (ORAJEL) 11.9 GM TUBE MT STA (02:58)
[2017-11-08] MEDS ORDERED: CLINDAMYCIN HCL 150 MG CAP PO ONE (03:00)
[2017-11-08] MEDS ORDERED: ALUMINUM/MAGNESIUM SUSP 30 ML UDC ONE (03:09)
[2017-11-08] MEDS ORDERED: LIDOCAINE HCL 2% VISC SOLN 20 ML UDC ONE (03:09)
[2017-11-08 03:30] VITALS: O2SAT 98
[2017-11-08 03:35] LABS: BASO % 0.4 %; BASO ABS # 0.04 K/uL (0-0.2); EOS % 1.7 %; EOS ABS # 0.19 K/uL (0-0.5); HEMATOCRIT 36.9 % (37-47); HEMOGLOBIN 12.5 g/dL (12.0-16.0); IG# 0.02 K/uL (0.00-0.02); LYMPH % 37.7 %; LYMPH ABS # 4.27 K/uL (1.2-3.4); MEAN CELL VOLUME 90.9 fL (80-100); MEAN CORPUSCULAR HEMOGLOBIN 30.8 pg (25-34); MEAN CORPUSCULAR HGB CONC 33.9 g/dl (32-36); MEAN PLATELET VOLUME 9.5 fL (7.4-10.4); MONO ABS # 0.68 K/uL (0.11-0.59); NEUT ABS # 6.12 K/uL (1.4-6.5); PLATELET COUNT 370 K/uL (130-400); RED CELL DISTRIBUTION WIDTH SD 46.4 fL (36.4-46.3); WHITE BLOOD COUNT 11.32 K/uL (4.8-10.8)
[2017-11-08 04:04] LABS: BLOOD UREA NITROGEN 13 mg/dl (7-18); CREATININE 0.76 mg/dl (0.60-1.20); GLUCOSE 96 mg/dl (70-99)
[2017-11-08 04:05] LABS: ALKALINE PHOSPHATASE 68 U/L (45-117); ALT/SGPT 24 U/L (12-78); AST/SGOT 13 U/L (15-37); CARBON DIOXIDE 23 mmol/L (21-32); LIPASE 89 U/L (73-393); POTASSIUM 3.9 mmol/L (3.5-5.1); SODIUM 138 mmol/L (136-145)
[2017-11-08] MEDS ORDERED: MoRPHine SULFATE 4 MG/ML 1 ML CARP\\VIAL IV STA (04:15)
[2017-11-08] MEDS ORDERED: CLINDAMYCIN 150MG HOME PACK PO ONE (04:15)
[2017-11-08] MEDS ORDERED: OXYCODONE IR HOME PACK PO ONE (04:15)
--- NOTE | 2017-11-08 04:17 | EMERGENCY ROOM VISIT NOTE ---
History First contact with patient: 02:52 Chief Complaint: DENTAL PAIN Stated Complaint: PAIN,MOUTH,FACE Nursing Triage Summary: Pt reports right lower dental pain into jaw and chest. Pt states, "I have gastro problems and I've taken too much ibuprofen so I now I have nausea and cramping. I think I worked up my gastritis." Pt reports dental pain x 2 weeks. "It started out as a cavity and now it's really bad. I thought it would be okay until I got dental insurance coverage. I read on the internet that it's really bad that the pain is traveling." History of Present Illness The patient is a 22 year old female who presents to the Emergency Room with complaints of right lower dental pain for the past 2 weeks steadily getting worse with pain currently 9 out of 10. Palpation makes it worse nothing makes it better. It radiates to her jaw line. Patient states she has been stressed and crying over this and now she has a flare of her gastritis. Patient complains of epigastric discomfort. She also has a history of pancreatitis but states this feels like her gastritis. She is on a PPI currently. She cannot recall the name though. Patient denies chest pain, dyspnea, fever, chills, vomiting, diarrhea, neck stiffness, cold symptoms. She is tolerating p.o. fluids and food. Review of Systems An 10 system review of systems was completed with positives and pertinent negatives listed in the HPI. Past Medical/Surgical History Medical Problems: (1) Active labor at term (2) Acute pancreatitis (3) Epigastric abdominal pain (4) Ovarian cyst (5) Tubo-ovarian abscess (6) Upper abdominal pain Social History Smoking Status: Never Smoker Drug Use: none Marital Status: in relationship Housing Status: lives with family Occupation Status: employed Current/Historical Medications Scheduled Omeprazole (Prilosec), 40 MG PO DAILY Physical Exam Vital Signs Date Time Temp Pulse Resp B/P (MAP) Pulse Ox O2 Delivery O2 Flow Rate FiO2 11/08/17 03:55 80 11/08/17 03:30 81 18 128/72 98 Room Air 11/08/17 03:30 98 Room Air 11/08/17 03:30 98 Room Air 11/08/17 02:46 36.8 88 20 143/93 97 Room Air Physical Exam VITALS: Vitals are noted on the nurse's note and reviewed by myself. Vital signs stable. GENERAL: Tearful young female, in no acute distress, nondiaphoretic, well- developed well-nourished. SKIN: The skin was without rashes, erythema, edema, or bruising. There is no tenting of the skin. Capillary reflex less than 2 seconds. HEAD: Normocephalic atraumatic. EARS: External auditory canals clear, tympanic membranes pearly key without erythema or effusion bilaterally. EYES: Pupils equal round and reactive to light and accommodation. Conjunctivae without injection, sclerae without icterus. Extraocular movements intact. NOSE: Patent, turbinates without inflammation or discharge. No sinus tenderness. MOUTH: Mucous membranes moist. Pharynx without erythema or exudate. Uvula midline. Airway patent. Tongue does not deviate. No Alexis's angina Dental exam: Right lower molar with extensive dental decay without palpable abscess. No signs of Alexis angina. Overall dental hygiene fair NECK: Supple without nuchal rigidity. No lymphadenopathy. No thyromegaly. Cervical spine is nontender. No JVD. HEART: Regular rate and rhythm without murmurs gallops or rubs. LUNGS: Clear to auscultation bilaterally without wheezes, rales or rhonchi. No retractions or accessory muscle use. ABDOMEN: Positive bowel sounds x 4. Normal tympanic percussion. Soft, nontender, without masses or organomegaly. Solorzano sign negative. No guarding or rebound tenderness. No CVA tenderness MUSCULOSKELETAL: No muscle atrophy, erythema, or edema noted. NEURO: Patient was alert and oriented to person place and time. Normal sensation to light and sharp touch. No focal neurological deficits. Medical Decision & Procedures Laboratory Results 11/08/17 03:20 Red Blood Count 4.06, Mean Corpuscular Volume 90.9, Mean Corpuscular Hemoglobin 30.8, Mean Corpuscular Hemoglobin Concent 33.9, Mean Platelet Volume 9.5, Neutrophils (%) (Auto) 54.0, Lymphocytes (%) (Auto) 37.7, Monocytes (%) (Auto) 6.0, Eosinophils (%) (Auto) 1.7, Basophils (%) (Auto) 0.4, Neutrophils # (Auto) 6.12, Lymphocytes # (Auto) 4.27, Monocytes # (Auto) 0.68, Eosinophils # (Auto) 0.19, Basophils # (Auto) 0.04 7/31/18 03:20 Test 11/08/17 03:20 11/08/17 03:27 White Blood Count 11.32 K/uL (4.8-10.8) Red Blood Count 4.06 M/uL (4.2-5.4) Hemoglobin 12.5 g/dL (12.0-16.0) Hematocrit 36.9 % (37-47) Mean Corpuscular Volume 90.9 fL (80-100) Mean Corpuscular Hemoglobin 30.8 pg (25-34) Mean Corpuscular Hemoglobin Concent 33.9 g/dl (32-36) Platelet Count 370 K/uL (130-400) Mean Platelet Volume 9.5 fL (7.4-10.4) Neutrophils (%) (Auto) 54.0 % Lymphocytes (%) (Auto) 37.7 % Monocytes (%) (Auto) 6.0 % Eosinophils (%) (Auto) 1.7 % Basophils (%) (Auto) 0.4 % Neutrophils # (Auto) 6.12 K/uL (1.4-6.5) Lymphocytes # (Auto) 4.27 K/uL (1.2-3.4) Monocytes # (Auto) 0.68 K/uL (0.11-0.59) Eosinophils # (Auto) 0.19 K/uL (0-0.5) Basophils # (Auto) 0.04 K/uL (0-0.2) RDW Standard Deviation 46.4 fL (36.4-46.3) RDW Coefficient of Variation 14.0 % (11.5-14.5) Immature Granulocyte % (Auto) 0.2 % Immature Granulocyte # (Auto) 0.02 K/uL (0.00-0.02) Anion Gap 8.0 mmol/L (3-11) Est Creatinine Clear Calc Drug Dose 123.7 ml/min Estimated GFR () 127.2 Estimated GFR (Non- 109.8 BUN/Creatinine Ratio 17.3 (10-20) Calcium Level 9.0 mg/dl (8.5-10.1) Total Bilirubin 0.3 mg/dl (0.2-1) Direct Bilirubin < 0.1 mg/dl (0-0.2) Aspartate Amino Transf (AST/SGOT) 13 U/L (15-37) Alanine Aminotransferase (ALT/SGPT) 24 U/L (12-78) Alkaline Phosphatase 68 U/L (45-117) Total Protein 8.0 gm/dl (6.4-8.2) Albumin 4.0 gm/dl (3.4-5.0) Lipase 89 U/L (73-393) Human Chorionic Gonadotropin, Qual NEG (NEG) Bedside Troponin I < 0.030 ng/ml (0-0.045) Medications Administered Medications (Trade) Dose Ordered Sig/Nelson Route Start Time Stop Time Status Last Admin Dose Admin Lidocaine HCl (Viscous Lidocaine 2% Soln) 10 ml NOW STAT PO 11/08/17 02:56 11/08/17 02:57 DC 11/08/17 02:56 10 ML Al Hydroxide/Mg Hydroxide (Maalox Susp) 30 ml NOW STAT PO 11/08/17 02:56 11/08/17 02:57 DC 11/08/17 02:56 30 ML Ketorolac Tromethamine (Toradol Inj) 10 mg NOW STAT IV 11/08/17 02:56 11/08/17 02:57 DC 11/08/17 03:31 10 MG Benzocaine (Orajel 20% Oral Gel) 1 appln NOW STAT MT 11/08/17 02:58 11/08/17 02:59 DC 11/08/17 03:30 1 APPLN Clindamycin HCl (Cleocin Cap) 150 mg NOW ONCE PO 11/08/17 03:00 11/08/17 03:01 DC 11/08/17 03:00 150 MG ED Course Prior records/ancillary studies reviewed. Triage Nursing notes reviewed. The patient's history was concerning for dental pain with epigastric abdominal pain. Differential diagnosis: Etiologies such as Alexis's angina, dental caries, gingivitis, abscess, appendicitis, diverticulitis, PUD, biliary pathology, UTI, pancreatitis, obstruction, mesenteric ischemia, aortic pathology, infections, inflammatory bowel disease, renal colic, as well as others were entertained. Physical examination findings: As above. ER treatment provided: GI cocktail, Cleocin, Orajel On reassessment the patient felt better. Diagnostics interpreted by me: ECG: Normal sinus, normal intervals, no acute ST-T wave changes. Impression normal sinus rhythm interpreted by myself. Indication is for epigastric pain Insert comes syncope EKG. The labs revealed mild leukocytosis. Negative troponin. Stable H&H. Imaging studies: Chest x-ray with no acute consolidation, pneumothorax free of my interpretation HEART SCORE: Hx: high/mod/low suspicion: 0 ECG: ST depression/nonspecific changes/normal: 0 Age: Greater than 65/45-64/less than 45: 0 Risk factors: (Hypertension, hyperlipidemia, diabetes, coronary disease, tobacco use, cocaine use): 0 Troponin: Greater than 2 times normal limits/1-2 times normal limits/normal: 0 Total: 0 Wells Score Symptoms of DVT 3pt: 0 Alternative diagnoses better explains illness 3pts: 0 Tachycardia greater than 100 1.5 pts 0 Immobilization greater than 3 days or surgery in the previous 4 weeks 1.5 pts: 0 Prior history of DVT or PE 1.5 pts: 0 Presence of hemoptysis 1pt: 0 Presence of malignancy 1pt: 0 (Score greater than 6 is high probability, score 2-6 moderate probability, score less than 2 low probability) Total: 0 The pulmonary embolism rule out criteria (PERC rule) Age <50 years 0 Heart rate <100 bpm 0 Oxyhemoglobin saturation =95% 0 No hemoptysis 0 No estrogen use 0 No prior DVT or PE 0 No unilateral leg swelling 0 No surgery/trauma requiring hospitalization within the prior four weeks 0 (0 low risk) Total: 0 Exam and history seem consistent with dental pain from dental infection and gastritis from the stress of the dental problem. Patient did not have acute abdomen on exam. Repeat abdominal exam was benign. Patient had no acute findings in the above workup. Heart score was low. Well score was low on PERC score is negative. Patient did not have acute abdomen on exam. No signs of Alexis's angina. No signs of meningitis. She was advised to take medications as directed and advised to see dentist as soon as possible for her ongoing dental problems and the family care doctor. She was counseled on proper dental hygiene. She was advised to return to the immediately for chest pain, difficulty breathing, neck stiffness, worsening signs or symptoms or as needed. By the evaluation outlined above emergent etiologies such as appendicitis, diverticulitis, PUD, biliary pathology, UTI, pancreatitis, obstruction, mesenteric ischemia, aortic pathology, inflammatory bowel disease, renal colic, as well as others were deemed relatively unlikely. The pt informed about the findings as listed above. All questions were answered and pleased with the treatment. Return instructions were outlined and the patient was discharged in stable condition. Outpatient prescription management: [place], OxyIR Referral: The patient was referred back to their primary care physician and dentistry for follow-up in 2 to 3 days for a recheck of the current condition. Case reviewed with my attending The chart was completed utilizing [email or web address] Speech voice recognition software. Grammatical errors, random word insertions, pronoun errors, and incomplete sentences are an occassional consequence of this system due to software limitations, ambient noise, and hardware issues. Any formal questions or concerns about the content, text, or information contained within the body of this dictation should be directly addressed to the physician pastry assistant for clarification. Medical Decision As above [place] Drug Monitoring Program Search Results: patient reviewed within database, no issues identified Medication Reconcilliation Current Medication List: was personally reviewed by me Blood Pressure Screening Patient's blood pressure: Normal blood pressure Impression Primary Impression: Dental caries Additional Impressions: Tooth pain with chewing Epigastric abdominal pain Departure Information Dispostion Home / Self-Care Condition GOOD Referrals No Doctor, Assigned (PCP) Patient Instructions My [facility] Additional Instructions Clindamycin 150mg: Take one pill 4 times daily for 10 days for your infection. Take with food, but avoid dairy. Avoid prolonged sun exposure since this medication makes you temporarily more susceptible to sunburns. All antibiotics can cause diarrhea. If this occurs and you feel worse or it does not resolve in 1-2 days follow up with your doctor or return to the Emergency Department as this could be signs of serious underlying problems. Any medication can cause an allergic reaction, stop the pills immediately and return to the ER for rash, hives, breathing difficulties, or swelling. Oxycodone (OxyIR) 5mg: Take 1-2 pills every four hours for breakthrough pain. Avoid alcohol, operating machinery or dangerous equipment, working on ladders or roofs, DRIVING, or situations where being under the influence may be dangerous. It is recommended to use an [id number] stool softener such as Colace, 100mg twice daily while taking this medication to avoid constipation. Ibuprofen(Motrin, Advil) may be used for fever or pain. Use 600mg every six hours as needed. Take with food. Avoid using more than 2400mg in a 24 hour period. Do not use 2400mg per day for more than three consecutive days without physician direction. Prolonged inappropriate use can lead to stomach upset or ulcers. This medication can be taken if you need to drive, work, or perform activities which may be dangerous when taking narcotic pain medication. (AND/OR) Acetaminophen(Tylenol) may be used for fever or pain. Use 1000mg every six hours as needed. Avoid using more than 3000mg in a 24 hour period. This medication can be taken if you need to drive, work, or perform activities which may be dangerous when taking narcotic pain medication. [place] teeth twice a day, floss daily and do warm saltwater gargles 3 times a day. See a dentist as soon as possible for definitive care for your dental problem. Return to ER sooner for facial swelling, fever, redness, worsening signs or symptoms or as needed. Follow-up family care doctor for your ongoing gastritis and abdominal issues in 2-3 days. Continue your PPI. You can try Maalox or Zantac for breakthrough symptoms. These are [id number]. Problem Qualifiers
[2017-11-08] MEDS ORDERED: CLIN150C PO (04:19)
[2017-11-08 04:57] VITALS: BP 136/84; PULSE 98; O2SAT 98
--- NOTE | 2017-11-08 07:24 | DIAGNOSTIC IMAGING REPORT ---
SINGLE VIEW CHEST CLINICAL HISTORY: Atypical chest pain. FINDINGS: An AP, portable, upright chest radiograph is compared to chest x-ray and chest CT dated 02/14/2016. The examination is degraded by portable technique and patient rotation. The cardiomediastinal silhouette is unremarkable. The lungs and pleural spaces are clear. No pneumothorax is seen. The bony thorax is grossly intact. Mild thoracic scoliosis is again noted. IMPRESSION: No active disease in the chest. Electronically signed by: Giorgio Martinez M.D. 11/08/2017 7:22 AM Dictated Date/Time: 11/08/2017 7:22 AM
== END 2017-11-08 04:57 | disposition home or self-care (01) ==
LOC: C.EDB 02:45
DX: K02.9 Dental caries, unspecified (principal); K29.70 Gastritis, unspecified, without bleeding; Z79.899 Other long term (current) drug therapy